=== PATIENT | male | born 1955 | race Caucasian/White ===

== ENCOUNTER 2017-07-16 09:51 | Outpatient (CLI) | payer MEDICAID ==
[~2017-07-16 09:51] MED LIST: CLOP75TA15 PO; MAGN100T6 PO; MULT1TAB74 PO; OMEG500C3 PO; VITC500T PO
== END 2017-07-16 23:59 | disposition home or self-care (01) ==
LOC: VAS 09:51
PROVIDERS: ATTEND Surgery
DX: I77.9 Disorder of arteries and arterioles, unspecified (principal)
CPT/HCPCS: 93922

== ENCOUNTER 2017-09-25 12:27 | Outpatient (CLI) | payer MEDICAID | END 2017-09-25 23:59 | disposition home or self-care (01) | LOC: VAS 12:27 | PROVIDERS: ATTEND Surgery | DX: I70.213 Atherosclerosis of native arteries of extremities with intermittent claudication, bilateral legs (principal) | CPT/HCPCS: 93922 ==

== ENCOUNTER 2021-03-25 16:31 | Inpatient (IN) | payer MEDICARE, MEDICAID ==
[~2021-03-25] VITALS: Ht 172.7 cm; Wt 83.0 kg
[~2021-03-25 16:31] MED LIST changes: +MULT-620 PO; -MULT1TAB74 PO
[2021-03-25 19:25] LABS: D-DIMER 3.24 MG/L FEU (0-0.50)
[2021-03-25] MEDS ORDERED: heparin 10,000 units/1 ML INJ IV PRN (22:55)
[2021-03-25] MEDS ORDERED: heparin 10,000 units/1 ML INJ IV ONE ×2 (22:55→23:10)
[2021-03-25] MEDS ORDERED: iohexol 350MG/ML 100ml bottle IV ONE (23:31)
[2021-03-26] MEDS ORDERED: HYDROmorphone inj. 0.5 MG/0.5 ML DISP.SYRIN IV PRN (00:45)
[2021-03-26] MEDS ORDERED: acetaminophen 650mg rectal suppository RC PRN (00:45)
[2021-03-26] MEDS ORDERED: bisacodyl 10mg suppository rectal RC PRN (00:45)
[2021-03-26] MEDS ORDERED: normal saline 1000ml 1,000 ML IV SCH (00:45)
[2021-03-26] MEDS ORDERED: acetaminophen 325mg tablet PO PRN ×2 (00:45)
[2021-03-26] MEDS ORDERED: ondansetron/PF 4mg/2ml inj IV PRN (00:45)
[2021-03-26] MEDS ORDERED: diphenhydrAMINE 50 mg/ml inj IV PRN (00:45)
[2021-03-26] MEDS ORDERED: morphine 2 MG/ML inj. syringe IV PRN ×2 (00:45)
[2021-03-26] MEDS ORDERED: HYDROcodone/acetaminophen 10/325mg tab PO PRN (00:45)
[2021-03-26] MEDS ORDERED: magnesium hydroxide 30ml (MOM) UD suspension PO PRN (00:45)
[2021-03-26] MEDS ORDERED: mag hydrox/Alum hydrox/simeth 30ml oral suspension PO PRN (00:45)
[2021-03-26] MEDS ORDERED: ondansetron 4mg rapidly disintigrating tab PO PRN (00:45)
[2021-03-26] MEDS ORDERED: diphenhydrAMINE 25mg capsule PO PRN (00:45)
[2021-03-26 00:54] LABS: BASOPHILS # (AUTO) 0.1 X10'3 (0-0.2); BASOPHILS % (AUTO) 0.7 % (0-1); EOSINOPHILS # (AUTO) 0.1 X10'3 (0-0.9); EOSINOPHILS % (AUTO) 1.1 % (0-6); HEMATOCRIT 43.8 % (42.0-52.0); HEMOGLOBIN 14.8 g/dl (14.0-17.9); LYMPHOCYTES # (AUTO) 2.6 X10'3 (1.1-4.8); LYMPHOCYTES % (AUTO) 30.7 % (21-51); MEAN CORPUSCULAR HEMOGLOBIN 30.3 PG (27.0-31.0); MEAN CORPUSCULAR HGB CONC 33.9 g/dL (33.0-36.5); MEAN CORPUSCULAR VOLUME 89.6 FL (78-98); MEAN PLATELET VOLUME 8.7 FL (7.4-10.4); MONOCYTES # (AUTO) 0.5 X10'3 (0-0.9); MONOCYTES % (AUTO) 5.9 % (2-12); NEUTROPHILS # (AUTO) 5.2 X10'3 (1.8-7.7); NEUTROPHILS % (AUTO) 61.6 % (42-75); PLATELET COUNT 209 X10'3 (140-440); RED BLOOD COUNT 4.89 X10'6 (4.70-6.10); RED CELL DISTRIBUTION WIDTH 14.1 % (11.5-14.5); WHITE BLOOD COUNT 8.4 X10'3 (4.5-11.0)
[2021-03-26 01:08] LABS: ALANINE AMINOTRANSFERASE 23 U/L (12-78); ALBUMIN 3.8 G/DL (3.4-5.0); ALBUMIN/GLOBULIN RATIO 0.9 (1.1-1.5); ALKALINE PHOSPHATASE 76 IU/L (46-116); ANION GAP 11 (8-16); BILIRUBIN,TOTAL 0.4 MG/DL (0.1-1.0); BLOOD UREA NITROGEN 11 MG/DL (7-18); BUN/CREATININE RATIO 11.5 (5.4-32.0); CALCIUM 8.9 MG/DL (8.5-10.1); CHLORIDE 105 MMOL/L (99-107); CREATININE 0.96 MG/DL (0.60-1.10); GLUCOSE 100 MG/DL (70-104); HEMOGLOBIN A1C 5.7 % (4.5-6.2); SODIUM 141 MMOL/L (135-145); TOTAL CARBON DIOXIDE 24.6 MMOL/L (24-32); eGFR 79 ML/MIN
[2021-03-26 01:16] LABS: LIPASE 130 U/L (73-393); MAGNESIUM 2.2 MG/DL (1.5-2.4)
[2021-03-26 01:18] LABS: ASPARTATE AMINO TRANSFERASE 23 U/L (10-37); PHOSPHORUS 2.7 MG/DL (2.3-4.5); POTASSIUM 3.5 MMOL/L (3.5-5.1)
[2021-03-26] MEDS: heparin 25,000 UNIT/250ml bag 250 ML IV SCH ×2 (01:44→18:01)
[2021-03-26 04:22] LABS: BASOPHILS # (AUTO) 0.1 X10'3 (0-0.2); BASOPHILS % (AUTO) 0.8 % (0-1); EOSINOPHILS # (AUTO) 0.1 X10'3 (0-0.9); EOSINOPHILS % (AUTO) 1.6 % (0-6); HEMATOCRIT 40.4 % (42.0-52.0); HEMOGLOBIN 13.8 g/dl (14.0-17.9); LYMPHOCYTES # (AUTO) 2.6 X10'3 (1.1-4.8); LYMPHOCYTES % (AUTO) 31.9 % (21-51); MEAN CORPUSCULAR HEMOGLOBIN 30.3 PG (27.0-31.0); MEAN CORPUSCULAR HGB CONC 34.1 g/dL (33.0-36.5); MEAN CORPUSCULAR VOLUME 88.7 FL (78-98); MEAN PLATELET VOLUME 8.6 FL (7.4-10.4); MONOCYTES # (AUTO) 0.6 X10'3 (0-0.9); MONOCYTES % (AUTO) 7.4 % (2-12); NEUTROPHILS # (AUTO) 4.7 X10'3 (1.8-7.7); NEUTROPHILS % (AUTO) 58.3 % (42-75); PLATELET COUNT 191 X10'3 (140-440); RED BLOOD COUNT 4.55 X10'6 (4.70-6.10); WHITE BLOOD COUNT 8.1 X10'3 (4.5-11.0)
[2021-03-26] MEDS: pantoprazole 40mg Tablet.DR PO SCH (07:30)
[2021-03-26] MEDS: docusate sod 100mg capsule PO SCH ×2 (08:00→20:05)
[2021-03-26] MEDS: losartan 25mg tablet PO SCH (08:00)
--- NOTE | 2021-03-26 09:46 | NUR ---
Pt refused all medications, states that he is only on multivitamins. Patient is no longer on any of blood thinner medications.
--- NOTE | 2021-03-26 09:47 | NUR ---
Pt's PTT is 117. Will hold heparin for now and contact hospitalist.
--- NOTE | 2021-03-26 15:35 | NUR ---
Patient in room ED 7. I have received report from Julee MARCELO and had the opportunity to ask questions and assume patient care.
[2021-03-26 16:36] VITALS: BP 149/68
--- NOTE | 2021-03-26 17:10 | NUR ---
Dr. Li PAGER ID: [phone] MESSAGE: [facility] [id number] Saturnino Shepard, patient is NPO and would like to eat if able. He is the new admit on heparin gtt with Right lower leg occlusion. Please advise. Zeinab MARCELO [phone]
[2021-03-26 18:00] VITALS: BP 116/72
--- NOTE | 2021-03-26 18:21 | NUR ---
Problems reprioritized. Patient report given, questions answered & plan of care reviewed with Ayde MARCELO.
[2021-03-26 22:00] VITALS: BP 125/70
[2021-03-27] VITALS (11 sets, daily range): BP systolic 103–138; BP diastolic 65–97
[2021-03-27 06:20] LABS: BASOPHILS % (AUTO) 0.6 % (0-1); EOSINOPHILS # (AUTO) 0.1 X10'3 (0-0.9); EOSINOPHILS % (AUTO) 1.5 % (0-6); HEMATOCRIT 40.4 % (42.0-52.0); HEMOGLOBIN 13.8 g/dl (14.0-17.9); LYMPHOCYTES # (AUTO) 2.3 X10'3 (1.1-4.8); MEAN CORPUSCULAR HEMOGLOBIN 30.6 PG (27.0-31.0); MEAN CORPUSCULAR HGB CONC 34.3 g/dL (33.0-36.5); MEAN CORPUSCULAR VOLUME 89.2 FL (78-98); MEAN PLATELET VOLUME 9.1 FL (7.4-10.4); MONOCYTES # (AUTO) 0.6 X10'3 (0-0.9); MONOCYTES % (AUTO) 9.2 % (2-12); NEUTROPHILS # (AUTO) 3.5 X10'3 (1.8-7.7); NEUTROPHILS % (AUTO) 53.7 % (42-75); PLATELET COUNT 186 X10'3 (140-440); RED BLOOD COUNT 4.53 X10'6 (4.70-6.10); RED CELL DISTRIBUTION WIDTH 14.7 % (11.5-14.5); WHITE BLOOD COUNT 6.6 X10'3 (4.5-11.0)
[2021-03-27 06:32] LABS: ALANINE AMINOTRANSFERASE 20 U/L (12-78); ALBUMIN 3.3 G/DL (3.4-5.0); ALBUMIN/GLOBULIN RATIO 0.9 (1.1-1.5); ALKALINE PHOSPHATASE 70 IU/L (46-116); ANION GAP 9 (8-16); ASPARTATE AMINO TRANSFERASE 19 U/L (10-37); BILIRUBIN,TOTAL 0.4 MG/DL (0.1-1.0); BLOOD UREA NITROGEN 14 MG/DL (7-18); BUN/CREATININE RATIO 14.9 (5.4-32.0); CALCIUM 8.6 MG/DL (8.5-10.1); CHLORIDE 108 MMOL/L (99-107); CHOLESTEROL 293 MG/DL (0-200); CREATININE 0.94 MG/DL (0.60-1.10); GLUCOSE 95 MG/DL (70-104); HDL CHOLESTEROL 42 MG/DL (35-60); LDL CHOLESTEROL 181 MG/DL (50-100); POTASSIUM 3.9 MMOL/L (3.5-5.1); SODIUM 144 MMOL/L (135-145); TOTAL CARBON DIOXIDE 26.9 MMOL/L (24-32); TOTAL PROTEIN 6.9 G/DL (6.4-8.2); TRIGLYCERIDES 174 MG/DL (20-135); eGFR 81 ML/MIN
[2021-03-27] MEDS: losartan 25mg tablet PO SCH (08:00)
[2021-03-27] MEDS: docusate sod 100mg capsule PO SCH ×2 (09:48→20:00)
[2021-03-27] MEDS: pantoprazole 40mg Tablet.DR PO SCH (09:49)
[2021-03-27] MEDS: heparin 25,000 UNIT/250ml bag 250 ML IV SCH (13:18)
[2021-03-27] MEDS ORDERED: LIDOcaine 1%/PF 5ML 10 MG/ML VIAL ONE (14:57)
[2021-03-27] MEDS ORDERED: fentaNYL/PF 50MCG/1 ML 2ML syringe ONE (14:58)
[2021-03-27] MEDS ORDERED: iohexol 300mg/ml 100ml inj. ONE (14:58)
[2021-03-27] MEDS ORDERED: midazolam 1 mg/ML 2ml injection ONE (14:58)
[2021-03-27] MEDS ORDERED: heparin 1,000 UNITS/NS 500ml 500 ML ONE (14:58)
--- NOTE | 2021-03-27 19:00 | NUR ---
Problems reprioritized. Patient report given, questions answered & plan of care reviewed with Pat RN.
[2021-03-27] MEDS: normal saline 1000ml 1,000 ML IV SCH (21:37)
[2021-03-28] VITALS (13 sets, daily range): BP systolic 69–120; BP diastolic 34–82
[2021-03-28 03:58] LABS: BASOPHILS % (AUTO) 0.5 % (0-1); EOSINOPHILS # (AUTO) 0.1 X10'3 (0-0.9); EOSINOPHILS % (AUTO) 0.7 % (0-6); HEMATOCRIT 40.3 % (42.0-52.0); HEMOGLOBIN 13.6 g/dl (14.0-17.9); LYMPHOCYTES # (AUTO) 2.2 X10'3 (1.1-4.8); LYMPHOCYTES % (AUTO) 26.4 % (21-51); MEAN CORPUSCULAR HEMOGLOBIN 30.4 PG (27.0-31.0); MEAN CORPUSCULAR HGB CONC 33.8 g/dL (33.0-36.5); MEAN PLATELET VOLUME 8.5 FL (7.4-10.4); MONOCYTES # (AUTO) 0.6 X10'3 (0-0.9); MONOCYTES % (AUTO) 7.8 % (2-12); NEUTROPHILS # (AUTO) 5.3 X10'3 (1.8-7.7); NEUTROPHILS % (AUTO) 64.6 % (42-75); PLATELET COUNT 191 X10'3 (140-440); RED BLOOD COUNT 4.48 X10'6 (4.70-6.10); RED CELL DISTRIBUTION WIDTH 14.4 % (11.5-14.5); WHITE BLOOD COUNT 8.1 X10'3 (4.5-11.0)
[2021-03-28 04:23] LABS: ANION GAP 9 (8-16); BLOOD UREA NITROGEN 18 MG/DL (7-18); CHLORIDE 107 MMOL/L (99-107); CREATININE 1.04 MG/DL (0.60-1.10); GLUCOSE 94 MG/DL (70-104); SODIUM 143 MMOL/L (135-145); TOTAL CARBON DIOXIDE 26.9 MMOL/L (24-32)
[2021-03-28 04:24] LABS: ALANINE AMINOTRANSFERASE 21 U/L (12-78); ALBUMIN 3.1 G/DL (3.4-5.0); ALBUMIN/GLOBULIN RATIO 0.8 (1.1-1.5); ALKALINE PHOSPHATASE 68 IU/L (46-116); ASPARTATE AMINO TRANSFERASE 19 U/L (10-37); BILIRUBIN,TOTAL 0.6 MG/DL (0.1-1.0); BUN/CREATININE RATIO 17.3 (5.4-32.0); CALCIUM 7.9 MG/DL (8.5-10.1); TOTAL PROTEIN 7.1 G/DL (6.4-8.2); eGFR 72 ML/MIN
--- NOTE | 2021-03-28 07:01 | NUR ---
Patient in room PCU 3027. I have received report from FOZIA ZULETA, and had the opportunity to ask questions and assume patient care.
[2021-03-28] MEDS: heparin 25,000 UNIT/250ml bag 250 ML IV SCH (08:42)
[2021-03-28] MEDS: normal saline 1000ml 1,000 ML IV SCH ×2 (08:44→19:25)
[2021-03-28] MEDS: losartan 25mg tablet PO SCH ×2 (08:44→08:47)
[2021-03-28] MEDS: docusate sod 100mg capsule PO SCH ×2 (08:44→19:26)
[2021-03-28] MEDS: pantoprazole 40mg Tablet.DR PO SCH ×2 (08:44→08:52)
[2021-03-28] MEDS: NORMAL SALINE IV SCH ×2 (10:45→22:07)
[2021-03-28 11:03] LABS: BASOPHILS # (AUTO) 0.1 X10'3 (0-0.2); BASOPHILS % (AUTO) 0.5 % (0-1); EOSINOPHILS # (AUTO) 0.1 X10'3 (0-0.9); EOSINOPHILS % (AUTO) 0.4 % (0-6); HEMATOCRIT 29.3 % (42.0-52.0); HEMOGLOBIN 9.7 g/dl (14.0-17.9); LYMPHOCYTES # (AUTO) 2.9 X10'3 (1.1-4.8); LYMPHOCYTES % (AUTO) 17.2 % (21-51); MEAN CORPUSCULAR HEMOGLOBIN 29.9 PG (27.0-31.0); MEAN CORPUSCULAR VOLUME 90.5 FL (78-98); MEAN PLATELET VOLUME 8.9 FL (7.4-10.4); MONOCYTES # (AUTO) 1.2 X10'3 (0-0.9); MONOCYTES % (AUTO) 7.3 % (2-12); NEUTROPHILS # (AUTO) 12.7 X10'3 (1.8-7.7); NEUTROPHILS % (AUTO) 74.6 % (42-75); PLATELET COUNT 194 X10'3 (140-440); RED BLOOD COUNT 3.24 X10'6 (4.70-6.10); RED CELL DISTRIBUTION WIDTH 14.4 % (11.5-14.5)
[2021-03-28] MEDS ORDERED: iohexol 350MG/ML 100ml bottle IV ONE (11:27)
--- NOTE | 2021-03-28 12:00 | NUR ---
PT STARTED THE DAY WELL, AMBULATING IN THE JARA, NO C/O PAIN, ASKING ABOUT DISCHARGE. AT THE TIME OF THE PHYSICAL ASSESSMENT, VSS, GOOD LUNG SOUNDS, REGULAR HEART RATE, NO C/O PAIN, PALPABLE PEDAL PULSES. AT 0940, PT C/O NUMBNESS IN HIS R LEG, FROM HIS KNEE DOWN. PT WAS PALE AND DIAPHORETIC, LOW BP. PT SUDDEN STIFFENED, ROLLED HIS EYES AND REPORTED A MOMENT OF SYNCOPE. CODE WAS CALLED. Addendum: 03/28/21 at 1550 by Steph Olivares RN BLADDER SCAN 83ML. Addendum: 03/28/21 at 1550 by Steph Olivares RN HEPARIN GTT TURNED OFF AT [address] CELIS
[2021-03-28] MEDS ORDERED: midazolam 1 mg/ML 2ml injection ONE (12:11)
[2021-03-28] MEDS ORDERED: heparin 10,000 units/1 ML INJ ONE ×2 (12:12→12:29)
[2021-03-28] MEDS ORDERED: fentaNYL /PF 50mcg/ml 5ml ampule ONE (12:58)
[2021-03-28] MEDS ORDERED: albumin (Human) 5% 250ml 250 ML IV ONE ×3 (12:58→22:45)
[2021-03-28] MEDS ORDERED: ceFAZolin 1000mg inj ONE ×2 (12:58→12:59)
[2021-03-28] MEDS ORDERED: LIDOcaine 2% (20mg/ml) 5ml vial ONE (12:59)
[2021-03-28] MEDS ORDERED: ePHEDrine 50MG/ML INJ. ONE (12:59)
[2021-03-28] MEDS ORDERED: 0.9 % SODIUM CHLORIDE 10 ML VIAL ONE (12:59)
[2021-03-28] MEDS ORDERED: rocuronium 10mg/ml inj IV ONE ×2 (12:59→14:20)
[2021-03-28 13:09] LABS: ABG BASE EXCESS -9.6 mmol/L (-2.0-2.0); ABG HCO3 16.4 mmol/L (22.0-26.0); ABG PCO2 (T) 34.9 mmHg (35.0-48.0); ABG PO2 (T) 265.6 mmHg (75.0-100.0); FCOHb 0.3 % (0.0-3.9); FMetHb 0.6 % (0.0-1.5); FO2Hb 98.1 % (94-97); TOTAL HEMOGLOBIN 8.4 G/dl (14.0-18.0)
[2021-03-28] MEDS ORDERED: sodium bicarbonate (8.4%) inj. 1 MEQ/ML ML ONE ×2 (13:13)
[2021-03-28 13:27] LABS: OCCULT BLOOD STOOL NEGATIVE (Neg)
[2021-03-28 13:49] LABS: BASOPHILS % (AUTO) 0.2 % (0-1); EOSINOPHILS % (AUTO) 0.1 % (0-6); HEMATOCRIT 26.5 % (42.0-52.0); HEMOGLOBIN 8.8 g/dl (14.0-17.9); LYMPHOCYTES # (AUTO) 0.9 X10'3 (1.1-4.8); LYMPHOCYTES % (AUTO) 7.4 % (21-51); MEAN CORPUSCULAR HEMOGLOBIN 29.8 PG (27.0-31.0); MEAN CORPUSCULAR HGB CONC 33.1 g/dL (33.0-36.5); MEAN CORPUSCULAR VOLUME 90.1 FL (78-98); MEAN PLATELET VOLUME 8.7 FL (7.4-10.4); MONOCYTES # (AUTO) 0.7 X10'3 (0-0.9); MONOCYTES % (AUTO) 5.5 % (2-12); NEUTROPHILS % (AUTO) 86.8 % (42-75); PLATELET COUNT 117 X10'3 (140-440); RED BLOOD COUNT 2.94 X10'6 (4.70-6.10); RED CELL DISTRIBUTION WIDTH 14.1 % (11.5-14.5); WHITE BLOOD COUNT 12.6 X10'3 (4.5-11.0)
[2021-03-28] MEDS ORDERED: midazolam 1 mg/ML 2ml injection IV ONE (13:55)
[2021-03-28] MEDS ORDERED: fentaNYL/PF 50MCG/1 ML 2ML syringe IV PRN (13:55)
[2021-03-28 13:59] LABS: ALBUMIN 2.3 G/DL (3.4-5.0); ANION GAP 13 (8-16); BLOOD UREA NITROGEN 17 MG/DL (7-18); BUN/CREATININE RATIO 17.3 (5.4-32.0); CALCIUM 6.5 MG/DL (8.5-10.1); CHLORIDE 112 MMOL/L (99-107); CREATINE KINASE 56 U/L (39-308); CREATININE 0.98 MG/DL (0.60-1.10); GLUCOSE 187 MG/DL (70-104); POTASSIUM 3.2 MMOL/L (3.5-5.1); SODIUM 142 MMOL/L (135-145); TOTAL CARBON DIOXIDE 17.4 MMOL/L (24-32); TROPONIN I < 0.04 NG/ML (0.0-0.05); eGFR 77 ML/MIN
[2021-03-28] MEDS ORDERED: morphine 10mg/ml inj. ONE (14:20)
[2021-03-28] MEDS ORDERED: heparin 1,000unit/ml 10ml vial 10 ML ONE (14:21)
[2021-03-28] MEDS ORDERED: NORepinephrine 1 mg/ml inj IV ONE (14:39)
[2021-03-28] MEDS ORDERED: bacitracin 15gm ointment TP ONE (14:43)
[2021-03-28 14:50] LABS: PARTIAL THROMBOPLASTIN TIME 28 SECONDS (22-32)
[2021-03-28] MEDS: midazolam 100mg in NS 100ml 100 ML IV PRN (15:30)
[2021-03-28] MEDS: FENTANYL-0.9 % NACL/PF 100 ML IV PRN (15:30)
[2021-03-28 16:01] LABS: ABG BASE EXCESS -6.1 mmol/L (-2.0-2.0); ABG HCO3 19.4 mmol/L (22.0-26.0); ABG OXYGEN SATURATION 98.3 % (94-97); ABG PO2 (T) 128.5 mmHg (75.0-100.0); FCOHb 0.3 % (0.0-3.9); FMetHb 0.4 % (0.0-1.5); FO2Hb 97.6 % (94-97); PEEP 6 cm H2O; RESPIRATORY RATE 22 b/min; TIDAL VOLUME 450 mL; TOTAL HEMOGLOBIN 12.4 G/dl (14.0-18.0)
[2021-03-28 16:08] LABS: BASOPHILS % (AUTO) 0.1 % (0-1); EOSINOPHILS % (AUTO) 0 % (0-6); HEMATOCRIT 34.5 % (42.0-52.0); HEMOGLOBIN 11.6 g/dl (14.0-17.9); LYMPHOCYTES # (AUTO) 1.1 X10'3 (1.1-4.8); LYMPHOCYTES % (AUTO) 7.3 % (21-51); MEAN CORPUSCULAR HEMOGLOBIN 30.2 PG (27.0-31.0); MEAN CORPUSCULAR HGB CONC 33.6 g/dL (33.0-36.5); MEAN PLATELET VOLUME 8.7 FL (7.4-10.4); MONOCYTES # (AUTO) 0.8 X10'3 (0-0.9); NEUTROPHILS # (AUTO) 13.3 X10'3 (1.8-7.7); NEUTROPHILS % (AUTO) 87.6 % (42-75); PLATELET COUNT 131 X10'3 (140-440); RED BLOOD COUNT 3.84 X10'6 (4.70-6.10); RED CELL DISTRIBUTION WIDTH 14.3 % (11.5-14.5); WHITE BLOOD COUNT 15.2 X10'3 (4.5-11.0)
[2021-03-28 16:17] LABS: PARTIAL THROMBOPLASTIN TIME 57 SECONDS (22-32)
--- NOTE | 2021-03-28 18:30 | NUR ---
Patient in room ICU 2040. I have received report from Rodri MARCELO and had the opportunity to ask questions and assume patient care.
[2021-03-28 19:54] LABS: D-DIMER 1.47 MG/L FEU (0-0.50); PARTIAL THROMBOPLASTIN TIME 26 SECONDS (22-32)
[2021-03-28 20:06] LABS: PLATELET COUNT 148 X10'3 (140-440)
[2021-03-28] MEDS ORDERED: magnesium 2GM in 50ml NS 50 ML IV ONE (20:15)
[2021-03-28] MEDS ORDERED: potassium Cl 20 mEq/100mL bag IV ONE (20:15)
[2021-03-28] MEDS ORDERED: calcium chloride inj. 1,000 MG in normal saline 100ml IV soln 100 ML IV ONE (20:15)
[2021-03-28] MEDS ORDERED: calcium chloride inj. 1,000 MG in normal saline 100ml IV soln 90 ML IV ONE (20:20)
[2021-03-28] MEDS ORDERED: potassium Cl 20mEq/100mL bag 100 ML IV ONE (20:20)
[2021-03-28] MEDS: potassium Cl 20mEq/100mL bag 100 ML IV SCH ×2 (20:38→22:38)
[2021-03-28 21:45] LABS: HEMATOCRIT 30.2 % (42.0-52.0); HEMOGLOBIN 10.3 g/dl (14.0-17.9); MEAN CORPUSCULAR HEMOGLOBIN 30.3 PG (27.0-31.0); MEAN CORPUSCULAR VOLUME 89.2 FL (78-98); MEAN PLATELET VOLUME 8.8 FL (7.4-10.4); PLATELET COUNT 134 X10'3 (140-440); RED BLOOD COUNT 3.39 X10'6 (4.70-6.10); RED CELL DISTRIBUTION WIDTH 14.3 % (11.5-14.5); WHITE BLOOD COUNT 13.3 X10'3 (4.5-11.0)
[2021-03-28] MEDS: dexmedetomidin/NS 400mcg/100ml 100 ML IV SCH (22:45)
[2021-03-29] VITALS (29 sets, daily range): BP systolic 87–113; BP diastolic 53–62
[2021-03-29] MEDS: FENTANYL-0.9 % NACL/PF 100 ML IV PRN ×6 (01:09→23:14)
[2021-03-29 02:50] LABS: ABG BASE EXCESS -5.3 mmol/L (-2.0-2.0); ABG HCO3 19.4 mmol/L (22.0-26.0); ABG OXYGEN SATURATION 97.2 % (94-97); ABG PCO2 (T) 34.8 mmHg (35.0-48.0); ABG PO2 (T) 100.6 mmHg (75.0-100.0); FMetHb 0.4 % (0.0-1.5); FO2Hb 96.8 % (94-97); PATIENT TEMPERATURE 37.2; PEEP 6 cm H2O; RESPIRATORY RATE 22 b/min; TIDAL VOLUME 450 mL; TOTAL HEMOGLOBIN 8.2 G/dl (14.0-18.0)
[2021-03-29 03:25] LABS: BASOPHILS % (AUTO) 0 % (0-1); EOSINOPHILS % (AUTO) 0 % (0-6); HEMATOCRIT 22.4 % (42.0-52.0); HEMOGLOBIN 7.5 g/dl (14.0-17.9); LYMPHOCYTES # (AUTO) 1.6 X10'3 (1.1-4.8); LYMPHOCYTES % (AUTO) 14.2 % (21-51); MEAN CORPUSCULAR HEMOGLOBIN 30.4 PG (27.0-31.0); MEAN CORPUSCULAR HGB CONC 33.7 g/dL (33.0-36.5); MEAN CORPUSCULAR VOLUME 90.2 FL (78-98); MEAN PLATELET VOLUME 8.7 FL (7.4-10.4); MONOCYTES # (AUTO) 1.4 X10'3 (0-0.9); MONOCYTES % (AUTO) 12.1 % (2-12); NEUTROPHILS # (AUTO) 8.3 X10'3 (1.8-7.7); NEUTROPHILS % (AUTO) 73.7 % (42-75); PLATELET COUNT 109 X10'3 (140-440); RED BLOOD COUNT 2.48 X10'6 (4.70-6.10); RED CELL DISTRIBUTION WIDTH 14.1 % (11.5-14.5); WHITE BLOOD COUNT 11.3 X10'3 (4.5-11.0)
[2021-03-29 03:41] LABS: ALANINE AMINOTRANSFERASE 15 U/L (12-78); ALBUMIN 2.7 G/DL (3.4-5.0); ALBUMIN/GLOBULIN RATIO 1.2 (1.1-1.5); ALKALINE PHOSPHATASE 32 IU/L (46-116); ANION GAP 9 (8-16); ASPARTATE AMINO TRANSFERASE 13 U/L (10-37); BILIRUBIN,TOTAL 0.6 MG/DL (0.1-1.0); BLOOD UREA NITROGEN 16 MG/DL (7-18); BUN/CREATININE RATIO 13.3 (5.4-32.0); CALCIUM 6.9 MG/DL (8.5-10.1); CHLORIDE 114 MMOL/L (99-107); GLUCOSE 141 MG/DL (70-104); MAGNESIUM 1.9 MG/DL (1.5-2.4); PHOSPHORUS 2.9 MG/DL (2.3-4.5); POTASSIUM 5.1 MMOL/L (3.5-5.1); SODIUM 142 MMOL/L (135-145); TOTAL CARBON DIOXIDE 19.5 MMOL/L (24-32); eGFR 61 ML/MIN
--- NOTE | 2021-03-29 04:30 | NUR ---
Morning rounds with ICU Tele-Med MD, aware of drop in H&H, received order for a STAT hemogram and to notify if HGB less than 7.5.
[2021-03-29 04:33] LABS: HEMOGLOBIN 7.2 g/dl (14.0-17.9); MEAN CORPUSCULAR HEMOGLOBIN 30.6 PG (27.0-31.0); MEAN CORPUSCULAR HGB CONC 33.8 g/dL (33.0-36.5); MEAN CORPUSCULAR VOLUME 90.5 FL (78-98); MEAN PLATELET VOLUME 9.2 FL (7.4-10.4); PLATELET COUNT 116 X10'3 (140-440); RED BLOOD COUNT 2.36 X10'6 (4.70-6.10); RED CELL DISTRIBUTION WIDTH 14.4 % (11.5-14.5); WHITE BLOOD COUNT 11.5 X10'3 (4.5-11.0)
[2021-03-29 04:39] LABS: HEMATOCRIT 21.4 % (42.0-52.0)
[2021-03-29 04:51] LABS: PARTIAL THROMBOPLASTIN TIME 30 SECONDS (22-32)
--- NOTE | 2021-03-29 05:30 | NUR ---
Dr Forrester notified of PT's drop in H&H. Order received to transfuse 2 units PRBC's. Blood bank was called to make sure they would release blood under emergent d/t not having a consent signed. Lab will release and will transfuse when available.
[2021-03-29] MEDS ORDERED: NORepinephrine 8mg/ 250ml NS 250 ML IV ONE (05:43)
[2021-03-29] MEDS: midazolam 100mg in NS 100ml 100 ML IV PRN ×3 (05:51→23:36)
[2021-03-29] MEDS ORDERED: Potassium Cl inj 40 MEQ in sodium chloride 0.45% 500ml 500 ML IV ONE (06:15)
--- NOTE | 2021-03-29 06:32 | NUR ---
Problems reprioritized. Patient report given, questions answered & plan of care reviewed with Sujit MARCELO.
[2021-03-29] MEDS: docusate sod 100mg capsule PO SCH ×2 (06:47→20:00)
[2021-03-29] MEDS: pantoprazole 40 MG vial IV SCH (09:11)
[2021-03-29] MEDS: normal saline 1000ml 1,000 ML IV SCH ×3 (09:20→23:33)
--- NOTE | 2021-03-29 11:15 | NUR ---
2ND unit blood transfusion completed at 1115; unit #[id number] with stable vital signs
[2021-03-29] MEDS ORDERED: NORMAL SALINE IV SCH (11:45)
[2021-03-29] MEDS: dexmedetomidin/NS 400mcg/100ml 100 ML IV SCH (11:59)
--- NOTE | 2021-03-29 12:00 | NUR ---
Urine output remains low; orders from Dr. Shah for fluids
[2021-03-29] MEDS ORDERED: normal saline 1000ml IV bolus over 1 hour IV ONE (12:15)
[2021-03-29] MEDS: CALCIUM GLUC 1gm/50ml NACL,iso 50 ML IV SCH ×2 (12:26→14:43)
[2021-03-29] MEDS: NORepinephrine 8mg/ 250ml NS 250 ML IV PRN ×2 (12:27→21:11)
[2021-03-29 12:38] LABS: HEMATOCRIT 29.7 % (42.0-52.0); HEMOGLOBIN 10.1 g/dl (14.0-17.9); MEAN CORPUSCULAR HEMOGLOBIN 30.7 PG (27.0-31.0); MEAN CORPUSCULAR VOLUME 90.4 FL (78-98); MEAN PLATELET VOLUME 9.1 FL (7.4-10.4); PLATELET COUNT 103 X10'3 (140-440); RED BLOOD COUNT 3.29 X10'6 (4.70-6.10); RED CELL DISTRIBUTION WIDTH 14.7 % (11.5-14.5); WHITE BLOOD COUNT 11.2 X10'3 (4.5-11.0)
--- NOTE | 2021-03-29 12:40 | NUR ---
Luis Consult: Pt intubated s/p evacuation retroperitoneal hematoma, laparotomy, L femoral and iliac artery/vein exploration, R femoral popliteal bypass graft w/ thromboendarterectomy distal popliteal artery per EMR. Luis 12 w/ L groin puncture site otherwise intact per EMR. MAP 67-70 during rounds. NPO at this time pending return to OR tomorrow for washout per RN. LBM 03/27. TF recs below using estimated needs. Will monitor for nutrition support needs if prolonged intubation. Rec: 1. IF TF; Vital AF at 70ml/hr goal; to provide 1680ml volume/day, 2016 kcals, 1361ml water, and 126g protein. 2. IF TF; additional water flush 150ml Q4H 3. IF TF; PALB Q ; daily scaled wts 4. routine bowel care 5. upon extubation; advance diet as medically indicated to heart healthy Addendum: 03/29/21 at [address] Amended: Links added.
[2021-03-29] MEDS: mineral oil/petrolatum ophthal oint EACHEYE SCH ×2 (14:31→20:47)
[2021-03-29] MEDS: ceFAZolin/D5W- 1GM premix 50 ML IV SCH (15:51)
[2021-03-29 15:59] LABS: HEMATOCRIT 28.1 % (42.0-52.0); HEMOGLOBIN 9.7 g/dl (14.0-17.9); MEAN CORPUSCULAR HEMOGLOBIN 31.2 PG (27.0-31.0); MEAN CORPUSCULAR HGB CONC 34.6 g/dL (33.0-36.5); MEAN CORPUSCULAR VOLUME 90.2 FL (78-98); MEAN PLATELET VOLUME 9.6 FL (7.4-10.4); PLATELET COUNT 102 X10'3 (140-440); RED BLOOD COUNT 3.12 X10'6 (4.70-6.10); RED CELL DISTRIBUTION WIDTH 14.4 % (11.5-14.5)
--- NOTE | 2021-03-29 18:30 | NUR ---
Patient in room ICU 2040. I have received report from Sujit MARCELO and had the opportunity to ask questions and assume patient care.
--- NOTE | 2021-03-29 18:33 | NUR ---
Problems reprioritized. Patient report given, questions answered & plan of care reviewed with Roshan MARCELO.
[2021-03-29 20:40] LABS: HEMATOCRIT 25.6 % (42.0-52.0); HEMOGLOBIN 8.8 g/dl (14.0-17.9); MEAN CORPUSCULAR HEMOGLOBIN 30.6 PG (27.0-31.0); MEAN CORPUSCULAR HGB CONC 34.3 g/dL (33.0-36.5); MEAN CORPUSCULAR VOLUME 89.4 FL (78-98); MEAN PLATELET VOLUME 8.9 FL (7.4-10.4); PLATELET COUNT 99 X10'3 (140-440); RED BLOOD COUNT 2.86 X10'6 (4.70-6.10); RED CELL DISTRIBUTION WIDTH 14.2 % (11.5-14.5); WHITE BLOOD COUNT 9.6 X10'3 (4.5-11.0)
[2021-03-30] VITALS (26 sets, daily range): BP systolic 88–115; BP diastolic 49–60
[2021-03-30] MEDS: ceFAZolin/D5W- 1GM premix 50 ML IV SCH (00:03)
[2021-03-30 01:29] LABS: BASOPHILS # (AUTO) 0.1 X10'3 (0-0.2); BASOPHILS % (AUTO) 0.7 % (0-1); EOSINOPHILS % (AUTO) 0.1 % (0-6); HEMATOCRIT 24.5 % (42.0-52.0); HEMOGLOBIN 8.4 g/dl (14.0-17.9); LYMPHOCYTES # (AUTO) 1.3 X10'3 (1.1-4.8); MEAN CORPUSCULAR HEMOGLOBIN 30.4 PG (27.0-31.0); MEAN CORPUSCULAR HGB CONC 34.3 g/dL (33.0-36.5); MEAN CORPUSCULAR VOLUME 88.6 FL (78-98); MEAN PLATELET VOLUME 9.2 FL (7.4-10.4); MONOCYTES % (AUTO) 11.4 % (2-12); NEUTROPHILS # (AUTO) 6.5 X10'3 (1.8-7.7); NEUTROPHILS % (AUTO) 72.8 % (42-75); PLATELET COUNT 107 X10'3 (140-440); RED BLOOD COUNT 2.76 X10'6 (4.70-6.10); RED CELL DISTRIBUTION WIDTH 14.6 % (11.5-14.5); WHITE BLOOD COUNT 8.9 X10'3 (4.5-11.0)
[2021-03-30 01:34] LABS: ALANINE AMINOTRANSFERASE 17 U/L (12-78); ALBUMIN/GLOBULIN RATIO 0.8 (1.1-1.5); ALKALINE PHOSPHATASE 37 IU/L (46-116); ANION GAP 6 (8-16); ASPARTATE AMINO TRANSFERASE 32 U/L (10-37); BILIRUBIN,TOTAL 0.6 MG/DL (0.1-1.0); BLOOD UREA NITROGEN 20 MG/DL (7-18); BUN/CREATININE RATIO 16.9 (5.4-32.0); CALCIUM 6.7 MG/DL (8.5-10.1); CHLORIDE 118 MMOL/L (99-107); CREATININE 1.18 MG/DL (0.60-1.10); GLUCOSE 135 MG/DL (70-104); POTASSIUM 4.5 MMOL/L (3.5-5.1); SODIUM 146 MMOL/L (135-145); TOTAL CARBON DIOXIDE 21.8 MMOL/L (24-32); TOTAL PROTEIN 4.4 G/DL (6.4-8.2); eGFR 62 ML/MIN
[2021-03-30] MEDS: mineral oil/petrolatum ophthal oint EACHEYE SCH ×4 (02:11→20:30)
[2021-03-30 02:41] LABS: ABG BASE EXCESS -7.4 mmol/L (-2.0-2.0); ABG HCO3 16.9 mmol/L (22.0-26.0); ABG OXYGEN SATURATION 91.9 % (94-97); ABG PCO2 (T) 31.8 mmHg (35.0-48.0); ABG PO2 (T) 70.7 mmHg (75.0-100.0); FCOHb 0.3 % (0.0-3.9); FMetHb 0.5 % (0.0-1.5); FO2Hb 91.2 % (94-97); PATIENT TEMPERATURE 38.5; PEEP 6 cm H2O; RESPIRATORY RATE 22 b/min; TIDAL VOLUME 450 mL
[2021-03-30 05:07] LABS: BASOPHILS % (AUTO) 0.2 % (0-1); EOSINOPHILS % (AUTO) 0 % (0-6); HEMATOCRIT 24.2 % (42.0-52.0); HEMOGLOBIN 8.2 g/dl (14.0-17.9); LYMPHOCYTES # (AUTO) 1.2 X10'3 (1.1-4.8); LYMPHOCYTES % (AUTO) 16.7 % (21-51); MEAN CORPUSCULAR HEMOGLOBIN 30.3 PG (27.0-31.0); MEAN CORPUSCULAR HGB CONC 33.9 g/dL (33.0-36.5); MEAN CORPUSCULAR VOLUME 89.6 FL (78-98); MEAN PLATELET VOLUME 9.3 FL (7.4-10.4); MONOCYTES # (AUTO) 0.9 X10'3 (0-0.9); MONOCYTES % (AUTO) 12.5 % (2-12); NEUTROPHILS % (AUTO) 70.6 % (42-75); PLATELET COUNT 109 X10'3 (140-440); RED CELL DISTRIBUTION WIDTH 14.6 % (11.5-14.5); WHITE BLOOD COUNT 7.1 X10'3 (4.5-11.0)
--- NOTE | 2021-03-30 05:27 | NUR ---
DR Walker rounded, discussed patient temp 101.4. She ordered blood cultures X2, sputum cultures. Changed antibiotics to Zosyn. He ordered 2 units prbc to be on hand for pre op.
[2021-03-30] MEDS: normal saline 1000ml 1,000 ML IV SCH ×3 (06:50→20:30)
[2021-03-30] MEDS: losartan 25mg tablet PO SCH (06:58)
[2021-03-30] MEDS: docusate sod 100mg capsule PO SCH ×2 (06:58→20:30)
[2021-03-30] MEDS: pantoprazole 40 MG vial IV SCH (08:24)
[2021-03-30] MEDS: piperacillin/tazo 4.5gm/100ml 100 ML IV SCH ×2 (08:24→16:15)
[2021-03-30 08:25] LABS: HEMATOCRIT 22.7 % (42.0-52.0); HEMOGLOBIN 7.7 g/dl (14.0-17.9); MEAN CORPUSCULAR HEMOGLOBIN 30.6 PG (27.0-31.0); MEAN CORPUSCULAR HGB CONC 33.9 g/dL (33.0-36.5); MEAN PLATELET VOLUME 8.8 FL (7.4-10.4); PLATELET COUNT 109 X10'3 (140-440); RED BLOOD COUNT 2.52 X10'6 (4.70-6.10)
[2021-03-30] MEDS: FENTANYL-0.9 % NACL/PF 100 ML IV PRN ×4 (08:44→21:39)
--- NOTE | 2021-03-30 08:52 | NUR ---
Dr. Arana at bedside with plans to take patient back to OR this afternoon. MD aware of oozing and gradual drop in H/H.
[2021-03-30 12:21] LABS: HEMATOCRIT 22.8 % (42.0-52.0); HEMOGLOBIN 7.7 g/dl (14.0-17.9); MEAN CORPUSCULAR HEMOGLOBIN 30.7 PG (27.0-31.0); MEAN CORPUSCULAR VOLUME 90.2 FL (78-98); MEAN PLATELET VOLUME 8.7 FL (7.4-10.4); PLATELET COUNT 109 X10'3 (140-440); RED BLOOD COUNT 2.53 X10'6 (4.70-6.10); RED CELL DISTRIBUTION WIDTH 14.8 % (11.5-14.5); WHITE BLOOD COUNT 5.4 X10'3 (4.5-11.0)
[2021-03-30 12:27] LABS: PARTIAL THROMBOPLASTIN TIME 36 SECONDS (22-32)
[2021-03-30] MEDS: NORepinephrine 8mg/ 250ml NS 250 ML IV PRN (13:14)
[2021-03-30] MEDS ORDERED: sevoflurane 250ml liquid IH ONE (14:44)
--- NOTE | 2021-03-30 14:52 | NUR ---
Patient to OR
[2021-03-30] MEDS ORDERED: rocuronium 10mg/ml inj IV ONE (15:06)
--- NOTE | 2021-03-30 16:00 | NUR ---
Patient back to room and placed on bedside monitor; HR in the 130s and asynchronous with the ventilator; elevated BP. Okay per Dr. Arana and anesthesiologist to bolus patient with 25mcg Fentanyl and 2mg Versed until stable on ventilator.
[2021-03-30] MEDS: midazolam 100mg in NS 100ml 100 ML IV PRN (17:21)
--- NOTE | 2021-03-30 18:22 | NUR ---
Problems reprioritized. Patient report given, questions answered & plan of care reviewed with Roshan MARCELO.
[2021-03-31] VITALS (29 sets, daily range): BP systolic 89–138; BP diastolic 43–71
[2021-03-31] MEDS: piperacillin/tazo 4.5gm/100ml 100 ML IV SCH ×3 (00:06→16:22)
[2021-03-31] MEDS: FENTANYL-0.9 % NACL/PF 100 ML IV PRN ×3 (02:08→22:33)
[2021-03-31] MEDS: mineral oil/petrolatum ophthal oint EACHEYE SCH ×4 (02:24→20:04)
[2021-03-31] MEDS: normal saline 1000ml 1,000 ML IV SCH ×4 (02:24→22:34)
[2021-03-31 03:01] LABS: BASOPHILS % (AUTO) 0.1 % (0-1); EOSINOPHILS % (AUTO) 0.1 % (0-6); LYMPHOCYTES # (AUTO) 0.6 X10'3 (1.1-4.8); LYMPHOCYTES % (AUTO) 14.1 % (21-51); MEAN CORPUSCULAR HEMOGLOBIN 30.8 PG (27.0-31.0); MEAN CORPUSCULAR HGB CONC 33.9 g/dL (33.0-36.5); MEAN CORPUSCULAR VOLUME 90.9 FL (78-98); MEAN PLATELET VOLUME 8.8 FL (7.4-10.4); MONOCYTES # (AUTO) 0.4 X10'3 (0-0.9); NEUTROPHILS # (AUTO) 3.4 X10'3 (1.8-7.7); NEUTROPHILS % (AUTO) 76.7 % (42-75); PLATELET COUNT 105 X10'3 (140-440); RED BLOOD COUNT 2.18 X10'6 (4.70-6.10); RED CELL DISTRIBUTION WIDTH 15.2 % (11.5-14.5); WHITE BLOOD COUNT 4.5 X10'3 (4.5-11.0)
[2021-03-31 03:02] LABS: ABG BASE EXCESS -5.9 mmol/L (-2.0-2.0); ABG HCO3 18.7 mmol/L (22.0-26.0); ABG OXYGEN SATURATION 93.1 % (94-97); ABG PCO2 (T) 32.3 mmHg (35.0-48.0); ABG PO2 (T) 68.1 mmHg (75.0-100.0); FCOHb 0.3 % (0.0-3.9); FMetHb 0.3 % (0.0-1.5); FO2Hb 92.5 % (94-97); PATIENT TEMPERATURE 37.3; PEEP 6 cm H2O; RESPIRATORY RATE 22 b/min; TIDAL VOLUME 450 mL; TOTAL HEMOGLOBIN 5.9 G/dl (14.0-18.0)
[2021-03-31 03:09] LABS: HEMATOCRIT 19.8 % (42.0-52.0); HEMOGLOBIN 6.7 g/dl (14.0-17.9)
[2021-03-31 03:22] LABS: ALANINE AMINOTRANSFERASE 22 U/L (12-78); ALBUMIN 1.7 G/DL (3.4-5.0); ALBUMIN/GLOBULIN RATIO 0.6 (1.1-1.5); ALKALINE PHOSPHATASE 40 IU/L (46-116); ANION GAP 10 (8-16); ASPARTATE AMINO TRANSFERASE 39 U/L (10-37); BILIRUBIN,TOTAL 0.7 MG/DL (0.1-1.0); BLOOD UREA NITROGEN 16 MG/DL (7-18); BUN/CREATININE RATIO 14.8 (5.4-32.0); CALCIUM 6.5 MG/DL (8.5-10.1); CHLORIDE 115 MMOL/L (99-107); CREATININE 1.08 MG/DL (0.60-1.10); GLUCOSE 108 MG/DL (70-104); PHOSPHORUS 1.7 MG/DL (2.3-4.5); POTASSIUM 3.9 MMOL/L (3.5-5.1); SODIUM 145 MMOL/L (135-145); TOTAL CARBON DIOXIDE 20.5 MMOL/L (24-32); TOTAL PROTEIN 4.6 G/DL (6.4-8.2); eGFR 69 ML/MIN
[2021-03-31] MEDS ORDERED: CALCIUM GLUC 1gm/50ml NACL,iso 100 ML IV ONE (08:00)
[2021-03-31] MEDS: losartan 25mg tablet PO SCH (08:00)
[2021-03-31] MEDS: docusate sod 100mg capsule PO SCH ×2 (08:00→20:00)
[2021-03-31] MEDS: pantoprazole 40 MG vial IV SCH (09:44)
[2021-03-31 14:02] LABS: HEMATOCRIT 26.4 % (42.0-52.0); MEAN CORPUSCULAR HGB CONC 34.1 g/dL (33.0-36.5); MEAN CORPUSCULAR VOLUME 90.8 FL (78-98); MEAN PLATELET VOLUME 8.5 FL (7.4-10.4); PLATELET COUNT 113 X10'3 (140-440); RED BLOOD COUNT 2.91 X10'6 (4.70-6.10); RED CELL DISTRIBUTION WIDTH 15.2 % (11.5-14.5); WHITE BLOOD COUNT 6.5 X10'3 (4.5-11.0)
--- NOTE | 2021-03-31 18:25 | NUR ---
Patient in room ICU 2040. I have received report from Claire MARCELO and had the opportunity to ask questions and assume patient care.
[2021-04-01] VITALS (24 sets, daily range): BP systolic 94–129; BP diastolic 49–73
[2021-04-01] MEDS: piperacillin/tazo 4.5gm/100ml 100 ML IV SCH (00:53)
[2021-04-01] MEDS: mineral oil/petrolatum ophthal oint EACHEYE SCH ×4 (02:06→20:50)
[2021-04-01 03:22] LABS: BASOPHILS % (AUTO) 0.3 % (0-1); EOSINOPHILS % (AUTO) 0.1 % (0-6); HEMATOCRIT 25.9 % (42.0-52.0); LYMPHOCYTES # (AUTO) 0.8 X10'3 (1.1-4.8); LYMPHOCYTES % (AUTO) 10.7 % (21-51); MEAN CORPUSCULAR HEMOGLOBIN 31.4 PG (27.0-31.0); MEAN CORPUSCULAR HGB CONC 34.7 g/dL (33.0-36.5); MEAN CORPUSCULAR VOLUME 90.6 FL (78-98); MEAN PLATELET VOLUME 8.6 FL (7.4-10.4); MONOCYTES # (AUTO) 0.7 X10'3 (0-0.9); MONOCYTES % (AUTO) 9.5 % (2-12); NEUTROPHILS # (AUTO) 5.6 X10'3 (1.8-7.7); NEUTROPHILS % (AUTO) 79.4 % (42-75); PLATELET COUNT 128 X10'3 (140-440); RED BLOOD COUNT 2.86 X10'6 (4.70-6.10); RED CELL DISTRIBUTION WIDTH 15.9 % (11.5-14.5); WHITE BLOOD COUNT 7.1 X10'3 (4.5-11.0)
[2021-04-01 03:46] LABS: ALANINE AMINOTRANSFERASE 31 U/L (12-78); ALBUMIN 1.5 G/DL (3.4-5.0); ALBUMIN/GLOBULIN RATIO 0.4 (1.1-1.5); ALKALINE PHOSPHATASE 65 IU/L (46-116); ANION GAP 11 (8-16); ASPARTATE AMINO TRANSFERASE 81 U/L (10-37); BILIRUBIN,TOTAL 1.1 MG/DL (0.1-1.0); BLOOD UREA NITROGEN 19 MG/DL (7-18); BUN/CREATININE RATIO 20.4 (5.4-32.0); CHLORIDE 117 MMOL/L (99-107); CREATININE 0.93 MG/DL (0.60-1.10); GLUCOSE 100 MG/DL (70-104); MAGNESIUM 2.2 MG/DL (1.5-2.4); POTASSIUM 3.5 MMOL/L (3.5-5.1); SODIUM 148 MMOL/L (135-145); TOTAL CARBON DIOXIDE 19.9 MMOL/L (24-32); TOTAL PROTEIN 4.9 G/DL (6.4-8.2); eGFR 82 ML/MIN
[2021-04-01 03:51] LABS: PHOSPHORUS 1.2 MG/DL (2.3-4.5)
[2021-04-01 04:02] LABS: ABG BASE EXCESS -2.7 mmol/L (-2.0-2.0); ABG HCO3 20.8 mmol/L (22.0-26.0); ABG OXYGEN SATURATION 84.8 % (94-97); ABG PCO2 (T) 32.2 mmHg (35.0-48.0); ABG PO2 (T) 48.1 mmHg (75.0-100.0); FCOHb 0.3 % (0.0-3.9); FMetHb 0.1 % (0.0-1.5); FO2Hb 84.5 % (94-97); PATIENT TEMPERATURE 37.8; TOTAL HEMOGLOBIN 9.3 G/dl (14.0-18.0)
[2021-04-01] MEDS ORDERED: potassium phosphate inj 30 MMOL in normal saline 500ml IV soln 500 ML IV ONE (04:40)
[2021-04-01] MEDS: midazolam 100mg in NS 100ml 100 ML IV PRN (05:31)
--- NOTE | 2021-04-01 06:41 | NUR ---
Problems reprioritized. Patient report given, questions answered & plan of care reviewed with Rodri MARCELO.
[2021-04-01] MEDS: pantoprazole 40 MG vial IV SCH (08:31)
[2021-04-01] MEDS: CefTRIAXone 2gm/D5W 50ml BAG 50 ML IV SCH (08:31)
[2021-04-01] MEDS: losartan 25mg tablet PO SCH (08:32)
--- NOTE | 2021-04-01 11:27 | NUR ---
Reassessment: Pt remains intubated and sedated, went back to OR 03/30 for repeat exploratory laparotomy. Currently pending Surgeon consult for plans of feeding. [facility] 03/27. Will continue to monitor for nutrition support needs if prolonged intubation. Rec: 1. IF TF; Vital AF at 70ml/hr goal; to provide 1680ml volume/day, 2016 kcals, 1361ml water, and 126g protein. 2. IF TF; additional water flush 150ml Q4H 3. IF TF; PALB Q /; daily scaled wts 4. routine bowel care 5. upon extubation; advance diet as medically indicated to heart healthy Addendum: 04/01/21 at [address] Amended: Links added.
[2021-04-01] MEDS: docusate sodium 100mg/10ml UD cup PO SCH ×2 (11:38→20:49)
[2021-04-01 12:44] LABS: ISTAT CL 110 mmol/L (99-107); ISTAT K 4.1 mmol/L (3.5-5.1)
[2021-04-01 12:45] LABS: ISTAT ANION GAP 12 (8-12); ISTAT BUN 15 mg/dL (7-18); ISTAT CREATININE 0.8 mg/dL (0.8-1.3); ISTAT GLUCOSE 196 mg/dL (70-105); ISTAT HGB 8.8 g/dl (14.0-18.0); ISTAT Hct 26 %PCV (42-52); ISTAT IONIZED CALCIUM 1.05 mmol/L (1.03-1.32); ISTAT TOTAL CO2 18 mmol/L (24-32); ISTAT eGFR > 90 ML/MIN; POC BUN/CREATININE RATIO 18.8 (5.4-32.0)
[2021-04-01 12:46] LABS: ISTAT NA 140 mmol/L (135-145)
[2021-04-01 12:47] LABS: ISTAT K 3.2 mmol/L (3.5-5.1)
[2021-04-01 12:48] LABS: ISTAT ANION GAP 13 (8-12); ISTAT BUN 15 mg/dL (7-18); ISTAT CL 110 mmol/L (99-107); ISTAT CREATININE 0.8 mg/dL (0.8-1.3); ISTAT GLUCOSE 181 mg/dL (70-105); ISTAT HGB 8.5 g/dl (14.0-18.0); ISTAT Hct 25 %PCV (42-52); ISTAT IONIZED CALCIUM 0.99 mmol/L (1.03-1.32); ISTAT TOTAL CO2 17 mmol/L (24-32); ISTAT eGFR > 90 ML/MIN; POC BUN/CREATININE RATIO 18.8 (5.4-32.0)
[2021-04-01 12:49] LABS: ISTAT NA 140 mmol/L (135-145)
[2021-04-01 16:00] LABS: POTASSIUM 3.3 MMOL/L (3.5-5.1)
--- NOTE | 2021-04-01 18:33 | NUR ---
Patient in room ICU 2040. I have received report from Rodri MARCELO and had the opportunity to ask questions and assume patient care.
[2021-04-01] MEDS: Dextrose 10%-water IV solution 1,000 ML IV SCH (22:29)
[2021-04-02] VITALS (24 sets, daily range): BP systolic 84–137; BP diastolic 47–66
[2021-04-02] MEDS: mineral oil/petrolatum ophthal oint EACHEYE SCH ×4 (02:00→20:24)
[2021-04-02 03:28] LABS: ABG BASE EXCESS -4.3 mmol/L (-2.0-2.0); ABG PCO2 (T) 25.2 mmHg (35.0-48.0); ABG PO2 (T) 54.1 mmHg (75.0-100.0); FCOHb 0.3 % (0.0-3.9); FMetHb 0.3 % (0.0-1.5); FO2Hb 88.5 % (94-97); PATIENT TEMPERATURE 37.7; PEEP 6 cm H2O; TIDAL VOLUME 557 mL; TOTAL HEMOGLOBIN 9.6 G/dl (14.0-18.0)
[2021-04-02 03:37] LABS: BASOPHILS % (AUTO) 0.4 % (0-1); EOSINOPHILS % (AUTO) 0.2 % (0-6); HEMATOCRIT 26.4 % (42.0-52.0); HEMOGLOBIN 9.2 g/dl (14.0-17.9); LYMPHOCYTES # (AUTO) 1.5 X10'3 (1.1-4.8); LYMPHOCYTES % (AUTO) 13.9 % (21-51); MEAN CORPUSCULAR HEMOGLOBIN 31.4 PG (27.0-31.0); MEAN CORPUSCULAR HGB CONC 34.6 g/dL (33.0-36.5); MEAN CORPUSCULAR VOLUME 90.6 FL (78-98); MEAN PLATELET VOLUME 8.4 FL (7.4-10.4); MONOCYTES # (AUTO) 0.8 X10'3 (0-0.9); MONOCYTES % (AUTO) 7.5 % (2-12); NEUTROPHILS # (AUTO) 8.3 X10'3 (1.8-7.7); PLATELET COUNT 175 X10'3 (140-440); RED BLOOD COUNT 2.92 X10'6 (4.70-6.10); RED CELL DISTRIBUTION WIDTH 15.7 % (11.5-14.5); WHITE BLOOD COUNT 10.6 X10'3 (4.5-11.0)
[2021-04-02 03:58] LABS: ALANINE AMINOTRANSFERASE 53 U/L (12-78); ALBUMIN 1.4 G/DL (3.4-5.0); ALBUMIN/GLOBULIN RATIO 0.4 (1.1-1.5); ALKALINE PHOSPHATASE 105 IU/L (46-116); ANION GAP 9 (8-16); ASPARTATE AMINO TRANSFERASE 121 U/L (10-37); BILIRUBIN,TOTAL 1.1 MG/DL (0.1-1.0); BLOOD UREA NITROGEN 24 MG/DL (7-18); BUN/CREATININE RATIO 26.4 (5.4-32.0); CALCIUM 7.4 MG/DL (8.5-10.1); CHLORIDE 118 MMOL/L (99-107); CREATININE 0.91 MG/DL (0.60-1.10); GLUCOSE 107 MG/DL (70-104); MAGNESIUM 2.4 MG/DL (1.5-2.4); PHOSPHORUS 1.7 MG/DL (2.3-4.5); POTASSIUM 3.4 MMOL/L (3.5-5.1); SODIUM 148 MMOL/L (135-145); TOTAL CARBON DIOXIDE 21.3 MMOL/L (24-32); TOTAL PROTEIN 5.1 G/DL (6.4-8.2); eGFR 84 ML/MIN
[2021-04-02] MEDS ORDERED: potassium phosphate inj 15 MMOL in normal saline 250ml IV soln 250 ML IV ONE (05:05)
[2021-04-02] MEDS: FENTANYL-0.9 % NACL/PF 100 ML IV PRN ×3 (05:14→21:52)
--- NOTE | 2021-04-02 06:16 | NUR ---
Problems reprioritized. Patient report given, questions answered & plan of care reviewed with Rodri MARCELO.
[2021-04-02 08:22] LABS: ABG BASE EXCESS -2.2 mmol/L (-2.0-2.0); ABG HCO3 20.9 mmol/L (22.0-26.0); ABG OXYGEN SATURATION 93.4 % (94-97); ABG PCO2 (T) 29.5 mmHg (35.0-48.0); FCOHb 0.3 % (0.0-3.9); FMetHb 0.4 % (0.0-1.5); FO2Hb 92.7 % (94-97); PATIENT TEMPERATURE 36.8; PEEP 6 cm H2O; RESPIRATORY RATE 22 b/min; TIDAL VOLUME 510 mL; TOTAL HEMOGLOBIN 9.6 G/dl (14.0-18.0)
[2021-04-02] MEDS: losartan 25mg tablet PO SCH (08:36)
[2021-04-02] MEDS: docusate sodium 100mg/10ml UD cup PO SCH ×2 (08:36→20:40)
[2021-04-02] MEDS: CefTRIAXone 2gm/D5W 50ml BAG 50 ML IV SCH (08:36)
[2021-04-02] MEDS: pantoprazole 40 MG vial IV SCH (08:36)
--- NOTE | 2021-04-02 11:56 | NUR ---
TF Consult: TF okay to start at trickle and advance to goal as tolerated per Radius Corner Machine Operator, see recs below. Pt currently on D5 at 40ml/hr providing 163kcals/day. Will continue to monitor and adjust needs as medically indicated. Rec: 1. IF TF; Vital AF at 70ml/hr goal; to provide 1680ml volume/day, 2016 kcals, 1361ml water, and 126g protein. 2. IF TF; additional water flush 150ml Q4H 3. IF TF; PALB Q /; daily scaled wts 4. routine bowel care 5. upon extubation; advance diet as medically indicated to heart healthy Addendum: 04/02/21 at [address] Amended: Links added.
[2021-04-02] MEDS: midazolam 100mg in NS 100ml 100 ML IV PRN (12:01)
[2021-04-02 13:14] LABS: BASOPHILS % (AUTO) 0.3 % (0-1); EOSINOPHILS % (AUTO) 0.4 % (0-6); HEMATOCRIT 24.3 % (42.0-52.0); HEMOGLOBIN 8.4 g/dl (14.0-17.9); LYMPHOCYTES # (AUTO) 1.4 X10'3 (1.1-4.8); LYMPHOCYTES % (AUTO) 12.5 % (21-51); MEAN CORPUSCULAR HEMOGLOBIN 31.4 PG (27.0-31.0); MEAN CORPUSCULAR HGB CONC 34.6 g/dL (33.0-36.5); MEAN CORPUSCULAR VOLUME 90.9 FL (78-98); MEAN PLATELET VOLUME 7.8 FL (7.4-10.4); MONOCYTES # (AUTO) 0.8 X10'3 (0-0.9); MONOCYTES % (AUTO) 7.7 % (2-12); NEUTROPHILS # (AUTO) 8.6 X10'3 (1.8-7.7); NEUTROPHILS % (AUTO) 79.1 % (42-75); PLATELET COUNT 176 X10'3 (140-440); RED BLOOD COUNT 2.67 X10'6 (4.70-6.10); RED CELL DISTRIBUTION WIDTH 15.7 % (11.5-14.5); WHITE BLOOD COUNT 10.9 X10'3 (4.5-11.0)
[2021-04-02 13:27] LABS: PARTIAL THROMBOPLASTIN TIME 29 SECONDS (22-32)
[2021-04-02 14:35] LABS: ALANINE AMINOTRANSFERASE 48 U/L (12-78); ALBUMIN 1.3 G/DL (3.4-5.0); ALBUMIN/GLOBULIN RATIO 0.4 (1.1-1.5); ALKALINE PHOSPHATASE 100 IU/L (46-116); ANION GAP 10 (8-16); ASPARTATE AMINO TRANSFERASE 93 U/L (10-37); BLOOD UREA NITROGEN 22 MG/DL (7-18); BUN/CREATININE RATIO 25.9 (5.4-32.0); CALCIUM 7.1 MG/DL (8.5-10.1); CHLORIDE 118 MMOL/L (99-107); CREATININE 0.85 MG/DL (0.60-1.10); GLUCOSE 114 MG/DL (70-104); PHOSPHORUS 2.6 MG/DL (2.3-4.5); POTASSIUM 3.3 MMOL/L (3.5-5.1); SODIUM 149 MMOL/L (135-145); TOTAL CARBON DIOXIDE 20.7 MMOL/L (24-32); TOTAL PROTEIN 4.8 G/DL (6.4-8.2); eGFR 90 ML/MIN
[2021-04-02] MEDS ORDERED: potassium Cl 40MEQ/250ML bag 270 ML IV PRN (15:15)
[2021-04-02] MEDS: K and/or MAG REPLACEMENT MC SCH (19:33)
[2021-04-02] MEDS: lactobacillus rhamnosus 10,000 MMU CELLS/CAPSULE PO SCH (20:24)
[2021-04-02] MEDS: Dextrose 10%-water IV solution 1,000 ML IV SCH (23:40)
[2021-04-03] VITALS (25 sets, daily range): BP systolic 50–129; BP diastolic 46–70
[2021-04-03] MEDS: mineral oil/petrolatum ophthal oint EACHEYE SCH ×4 (02:41→20:21)
[2021-04-03 02:54] LABS: ABG BASE EXCESS -3.1 mmol/L (-2.0-2.0); ABG HCO3 19.9 mmol/L (22.0-26.0); ABG OXYGEN SATURATION 91.8 % (94-97); ABG PCO2 (T) 28.4 mmHg (35.0-48.0); ABG PO2 (T) 60.4 mmHg (75.0-100.0); FCOHb 0.3 % (0.0-3.9); FMetHb 0.2 % (0.0-1.5); FO2Hb 91.3 % (94-97); PATIENT TEMPERATURE 37.1; PEEP 6 cm H2O; RESPIRATORY RATE 16 b/min; TIDAL VOLUME 450 mL; TOTAL HEMOGLOBIN 9.5 G/dl (14.0-18.0)
[2021-04-03 03:15] LABS: BASOPHILS % (AUTO) 0.3 % (0-1); EOSINOPHILS # (AUTO) 0.1 X10'3 (0-0.9); HEMATOCRIT 26.2 % (42.0-52.0); HEMOGLOBIN 8.9 g/dl (14.0-17.9); LYMPHOCYTES # (AUTO) 1.3 X10'3 (1.1-4.8); LYMPHOCYTES % (AUTO) 10.9 % (21-51); MEAN CORPUSCULAR HEMOGLOBIN 30.7 PG (27.0-31.0); MEAN CORPUSCULAR HGB CONC 33.9 g/dL (33.0-36.5); MEAN CORPUSCULAR VOLUME 90.6 FL (78-98); MONOCYTES # (AUTO) 0.9 X10'3 (0-0.9); MONOCYTES % (AUTO) 7.9 % (2-12); NEUTROPHILS # (AUTO) 9.3 X10'3 (1.8-7.7); NEUTROPHILS % (AUTO) 79.9 % (42-75); PLATELET COUNT 210 X10'3 (140-440); RED BLOOD COUNT 2.89 X10'6 (4.70-6.10); WHITE BLOOD COUNT 11.7 X10'3 (4.5-11.0)
[2021-04-03 03:27] LABS: ALANINE AMINOTRANSFERASE 52 U/L (12-78); ALBUMIN 1.3 G/DL (3.4-5.0); ALBUMIN/GLOBULIN RATIO 0.4 (1.1-1.5); ALKALINE PHOSPHATASE 119 IU/L (46-116); ANION GAP 8 (8-16); ASPARTATE AMINO TRANSFERASE 95 U/L (10-37); BILIRUBIN,TOTAL 1.3 MG/DL (0.1-1.0); BLOOD UREA NITROGEN 24 MG/DL (7-18); BUN/CREATININE RATIO 29.3 (5.4-32.0); CALCIUM 7.3 MG/DL (8.5-10.1); CHLORIDE 118 MMOL/L (99-107); CREATININE 0.82 MG/DL (0.60-1.10); GLUCOSE 105 MG/DL (70-104); MAGNESIUM 2.4 MG/DL (1.5-2.4); PHOSPHORUS 1.9 MG/DL (2.3-4.5); POTASSIUM 3.4 MMOL/L (3.5-5.1); SODIUM 150 MMOL/L (135-145); TOTAL CARBON DIOXIDE 23.9 MMOL/L (24-32); TOTAL PROTEIN 4.9 G/DL (6.4-8.2); eGFR > 90 ML/MIN
[2021-04-03] MEDS ORDERED: potassium phosphate inj 30 MMOL in normal saline 500ml IV soln 500 ML IV ONE ×2 (04:45→04:50)
[2021-04-03] MEDS ORDERED: potassium phosphate inj 30 MMOL in normal saline 250ml IV soln 250 ML IV ONE (04:46)
--- NOTE | 2021-04-03 06:15 | NUR ---
Problems reprioritized. Patient report given, questions answered & plan of care reviewed with Rodri MARCELO.
[2021-04-03] MEDS: docusate sodium 100mg/10ml UD cup PO SCH ×2 (08:00→20:00)
[2021-04-03] MEDS: losartan 25mg tablet PO SCH (08:14)
[2021-04-03] MEDS: pantoprazole 40 MG vial IV SCH (08:14)
[2021-04-03] MEDS: lactobacillus rhamnosus 10,000 MMU CELLS/CAPSULE PO SCH ×2 (08:14→20:21)
[2021-04-03] MEDS: CefTRIAXone 2gm/D5W 50ml BAG 50 ML IV SCH (08:14)
[2021-04-03] MEDS: K and/or MAG REPLACEMENT MC SCH (08:15)
--- NOTE | 2021-04-03 11:46 | NUR ---
f/u 04/03: Serum Na 150 today, increase free water flush to 200ml Q4H per Bag Repairer, RN notified. Addendum: 04/03/21 at [address] Amended: Links added.
[2021-04-03 13:17] LABS: PHOSPHORUS 2.9 MG/DL (2.3-4.5); POTASSIUM 3.9 MMOL/L (3.5-5.1)
--- NOTE | 2021-04-03 18:15 | NUR ---
Patient in room ICU 2040. I have received report from Rodri and had the opportunity to ask questions and assume patient care.
[2021-04-03] MEDS: Dextrose 10%-water IV solution 1,000 ML IV SCH (18:40)
--- NOTE | 2021-04-03 22:49 | NUR ---
Found new wound during nightly bed bath. Wraps from Arterial line board were tight around L Hand, two nonblanching spots found. pictures taken and placed in chart. Wound care order put in .
[2021-04-04] VITALS (23 sets, daily range): BP systolic 81–140; BP diastolic 45–91
[2021-04-04 02:11] LABS: ABG BASE EXCESS -1.8 mmol/L (-2.0-2.0); ABG HCO3 21.5 mmol/L (22.0-26.0); ABG OXYGEN SATURATION 92.7 % (94-97); ABG PCO2 (T) 30.9 mmHg (35.0-48.0); ABG PO2 (T) 63.7 mmHg (75.0-100.0); FCOHb 0.3 % (0.0-3.9); FMetHb 0.4 % (0.0-1.5); FO2Hb 92.1 % (94-97); PATIENT TEMPERATURE 36.9; PEEP 6 cm H2O; RESPIRATORY RATE 16 b/min; TIDAL VOLUME 450 mL; TOTAL HEMOGLOBIN 9.4 G/dl (14.0-18.0)
[2021-04-04] MEDS: mineral oil/petrolatum ophthal oint EACHEYE SCH ×4 (02:11→20:02)
[2021-04-04] MEDS: FENTANYL-0.9 % NACL/PF 100 ML IV PRN ×2 (02:34→20:02)
[2021-04-04 03:11] LABS: BASOPHILS % (AUTO) 0.4 % (0-1); EOSINOPHILS # (AUTO) 0.2 X10'3 (0-0.9); EOSINOPHILS % (AUTO) 1.8 % (0-6); HEMATOCRIT 25.8 % (42.0-52.0); HEMOGLOBIN 8.6 g/dl (14.0-17.9); LYMPHOCYTES # (AUTO) 1.5 X10'3 (1.1-4.8); LYMPHOCYTES % (AUTO) 14.3 % (21-51); MEAN CORPUSCULAR HEMOGLOBIN 30.7 PG (27.0-31.0); MEAN CORPUSCULAR HGB CONC 33.4 g/dL (33.0-36.5); MEAN CORPUSCULAR VOLUME 91.9 FL (78-98); MONOCYTES # (AUTO) 0.8 X10'3 (0-0.9); MONOCYTES % (AUTO) 7.4 % (2-12); NEUTROPHILS % (AUTO) 76.1 % (42-75); PLATELET COUNT 235 X10'3 (140-440); RED CELL DISTRIBUTION WIDTH 15.4 % (11.5-14.5); WHITE BLOOD COUNT 10.5 X10'3 (4.5-11.0)
[2021-04-04 03:26] LABS: ALANINE AMINOTRANSFERASE 61 U/L (12-78); ALBUMIN 1.2 G/DL (3.4-5.0); ALBUMIN/GLOBULIN RATIO 0.3 (1.1-1.5); ALKALINE PHOSPHATASE 196 IU/L (46-116); ANION GAP 10 (8-16); ASPARTATE AMINO TRANSFERASE 96 U/L (10-37); BILIRUBIN,TOTAL 0.9 MG/DL (0.1-1.0); BLOOD UREA NITROGEN 26 MG/DL (7-18); BUN/CREATININE RATIO 31.3 (5.4-32.0); CALCIUM 7.1 MG/DL (8.5-10.1); CHLORIDE 119 MMOL/L (99-107); CREATININE 0.83 MG/DL (0.60-1.10); GLUCOSE 108 MG/DL (70-104); MAGNESIUM 2.2 MG/DL (1.5-2.4); PHOSPHORUS 2.8 MG/DL (2.3-4.5); POTASSIUM 3.6 MMOL/L (3.5-5.1); PREALBUMIN 6.7 MG/DL (19-36); SODIUM 151 MMOL/L (135-145); TOTAL CARBON DIOXIDE 22.3 MMOL/L (24-32); TOTAL PROTEIN 4.7 G/DL (6.4-8.2); eGFR > 90 ML/MIN
--- NOTE | 2021-04-04 06:17 | NUR ---
Problems reprioritized. Patient report given, questions answered & plan of care reviewed with Rodri.
[2021-04-04] MEDS: docusate sodium 100mg/10ml UD cup PO SCH ×2 (08:00→20:02)
[2021-04-04] MEDS: K and/or MAG REPLACEMENT MC SCH (08:00)
[2021-04-04] MEDS: losartan 25mg tablet PO SCH (08:43)
[2021-04-04] MEDS: pantoprazole 40 MG vial IV SCH (08:43)
[2021-04-04] MEDS: CefTRIAXone 2gm/D5W 50ml BAG 50 ML IV SCH (08:43)
[2021-04-04] MEDS: lactobacillus rhamnosus 10,000 MMU CELLS/CAPSULE PO SCH ×2 (08:43→20:01)
--- NOTE | 2021-04-04 11:09 | NUR ---
Reassessment: Pt continues to receive TF at goal of Vital AF at 70ml/hr tolerating well. Pt w/ serum Na 151 and D10 was started at 40ml/hr (326kcals) though to stop today per Slat Basket Maker Machine. LBM 03/03. No changes to nutrition intervention at this time, will continue to monitor. Rec: 1. Vital AF at 70ml/hr goal; to provide 1680ml volume/day, 2016 kcals, 1361ml water, and 126g protein. 2. additional water flush 200ml Q4H; monitor serum Na 3. PALB Q /; daily scaled wts 4. routine bowel care 5. upon extubation; advance diet as medically indicated to heart healthy Addendum: 04/04/21 at [address] Amended: Links added.
[2021-04-04] MEDS: dexmedetomidin/NS 400mcg/100ml 100 ML IV SCH ×2 (11:31→20:02)
--- NOTE | 2021-04-04 13:31 | NUR ---
F/u 04/04: Due to national shortage of Vital AF and Vital High Protein, if substitution necessary, recommend Pivot 1.5, see recs below for if substitution. Rec: 1. Vital AF at 70ml/hr goal; to provide 1680ml volume/day, 2016 kcals, 1361ml water, and 126g protein. 2. additional water flush 200ml Q4H; monitor serum Na 3. If out of Vital AF, sub Pivot 1.5 @ 55ml/hr providing 1320ml volume, 1980kcals, 123g Protein, 1003ml free water. Additional 250ml water flush 250ml Q4H 4. PALB Q /; daily scaled wts 5. routine bowel care 6. upon extubation; advance diet as medically indicated to heart healthy Addendum: 04/04/21 at [address] Amended: Links added.
[2021-04-05] VITALS (23 sets, daily range): BP systolic 101–150; BP diastolic 51–88
[2021-04-05] MEDS: Dextrose 10%-water IV solution 1,000 ML IV SCH (00:35)
--- NOTE | 2021-04-05 01:19 | NUR ---
Per repoD10 was started at 40ml/hr (326kcals) though to stop today per Tuber Machine Operator Helper Addendum: 04/05/21 at 0120 by Angela Ribera RN Per report from the day shift nurse, D10 was stop per Tuber Machine Operator Helper
[2021-04-05] MEDS: mineral oil/petrolatum ophthal oint EACHEYE SCH ×4 (01:21→20:33)
[2021-04-05 02:32] LABS: ABG HCO3 21.5 mmol/L (22.0-26.0); ABG OXYGEN SATURATION 93.4 % (94-97); ABG PCO2 (T) 27.9 mmHg (35.0-48.0); ABG PO2 (T) 64.9 mmHg (75.0-100.0); FCOHb 0.3 % (0.0-3.9); FMetHb 0.3 % (0.0-1.5); FO2Hb 92.8 % (94-97); PATIENT TEMPERATURE 36.9; PEEP 5 cm H2O; TIDAL VOLUME 450 mL; TOTAL HEMOGLOBIN 9.6 G/dl (14.0-18.0)
[2021-04-05 03:07] LABS: BASOPHILS # (AUTO) 0.1 X10'3 (0-0.2); BASOPHILS % (AUTO) 0.6 % (0-1); EOSINOPHILS # (AUTO) 0.2 X10'3 (0-0.9); EOSINOPHILS % (AUTO) 1.3 % (0-6); HEMATOCRIT 26.2 % (42.0-52.0); HEMOGLOBIN 8.9 g/dl (14.0-17.9); LYMPHOCYTES # (AUTO) 1.6 X10'3 (1.1-4.8); LYMPHOCYTES % (AUTO) 11.4 % (21-51); MEAN CORPUSCULAR HEMOGLOBIN 30.5 PG (27.0-31.0); MEAN CORPUSCULAR VOLUME 89.7 FL (78-98); MEAN PLATELET VOLUME 7.8 FL (7.4-10.4); MONOCYTES # (AUTO) 0.8 X10'3 (0-0.9); MONOCYTES % (AUTO) 5.6 % (2-12); NEUTROPHILS # (AUTO) 11.3 X10'3 (1.8-7.7); NEUTROPHILS % (AUTO) 81.1 % (42-75); PLATELET COUNT 292 X10'3 (140-440); RED BLOOD COUNT 2.93 X10'6 (4.70-6.10); RED CELL DISTRIBUTION WIDTH 16.2 % (11.5-14.5); WHITE BLOOD COUNT 13.9 X10'3 (4.5-11.0)
[2021-04-05 03:17] LABS: ALANINE AMINOTRANSFERASE 73 U/L (12-78); ALBUMIN 1.3 G/DL (3.4-5.0); ALBUMIN/GLOBULIN RATIO 0.3 (1.1-1.5); ALKALINE PHOSPHATASE 271 IU/L (46-116); ANION GAP 10 (8-16); ASPARTATE AMINO TRANSFERASE 104 U/L (10-37); BILIRUBIN,TOTAL 0.8 MG/DL (0.1-1.0); BLOOD UREA NITROGEN 28 MG/DL (7-18); BUN/CREATININE RATIO 33.3 (5.4-32.0); CALCIUM 7.3 MG/DL (8.5-10.1); CHLORIDE 116 MMOL/L (99-107); CREATININE 0.84 MG/DL (0.60-1.10); GLUCOSE 115 MG/DL (70-104); PHOSPHORUS 3.1 MG/DL (2.3-4.5); POTASSIUM 3.6 MMOL/L (3.5-5.1); SODIUM 149 MMOL/L (135-145); TOTAL CARBON DIOXIDE 23.3 MMOL/L (24-32); TOTAL PROTEIN 5.2 G/DL (6.4-8.2); eGFR > 90 ML/MIN
[2021-04-05] MEDS: dexmedetomidin/NS 400mcg/100ml 100 ML IV SCH ×2 (04:38→19:18)
--- NOTE | 2021-04-05 06:25 | NUR ---
REPORT GIVEN TO NICHOLE/RN
[2021-04-05] MEDS: K and/or MAG REPLACEMENT MC SCH (08:00)
[2021-04-05] MEDS: docusate sodium 100mg/10ml UD cup PO SCH ×2 (08:00→20:00)
[2021-04-05] MEDS: losartan 25mg tablet PO SCH (08:00)
[2021-04-05] MEDS: pantoprazole 40 MG vial IV SCH (08:17)
[2021-04-05] MEDS: CefTRIAXone 2gm/D5W 50ml BAG 50 ML IV SCH (08:17)
[2021-04-05] MEDS: lactobacillus rhamnosus 10,000 MMU CELLS/CAPSULE PO SCH ×2 (08:18→20:33)
[2021-04-05] MEDS ORDERED: ipratropium/albuterol 3ml nebule NEB PRN (09:25)
[2021-04-05] MEDS ORDERED: CADD PCA waste documentation MC PRN (09:25)
[2021-04-05] MEDS ORDERED: naloxone 0.4 mg/ml inj IV PRN (09:25)
[2021-04-05] MEDS ORDERED: racepinephrine 11.25mg/0.5ml nebule NEB PRN (09:25)
--- NOTE | 2021-04-05 10:42 | NUR ---
Patient extubated at 1035 per MD order. Placed on NC 3L NC. Family at bedside.
[2021-04-05] MEDS: HYDROmorph./NS 0.2 mg/ml CADD 100 ML IV SCH ×7 (11:00→23:00)
[2021-04-05] MEDS: ipratropium/albuterol 3ml nebule NEB SCH ×2 (15:15→21:29)
[2021-04-05] MEDS: temazepam 15mg capsule PO PRN (20:33)
[2021-04-06] VITALS (23 sets, daily range): BP systolic 115–151; BP diastolic 62–90
[2021-04-06] MEDS: HYDROmorph./NS 0.2 mg/ml CADD 100 ML IV SCH ×6 (01:00→11:00)
[2021-04-06] MEDS: Dextrose 10%-water IV solution 1,000 ML IV SCH (01:35)
[2021-04-06] MEDS: mineral oil/petrolatum ophthal oint EACHEYE SCH ×2 (01:48→08:00)
[2021-04-06] MEDS: ipratropium/albuterol 3ml nebule NEB SCH ×4 (02:08→20:15)
[2021-04-06] MEDS: dexmedetomidin/NS 400mcg/100ml 100 ML IV SCH (05:31)
[2021-04-06 06:28] LABS: BASOPHILS % (AUTO) 0.1 % (0-1); EOSINOPHILS # (AUTO) 0.1 X10'3 (0-0.9); EOSINOPHILS % (AUTO) 0.3 % (0-6); HEMATOCRIT 27.3 % (42.0-52.0); HEMOGLOBIN 9.1 g/dl (14.0-17.9); LYMPHOCYTES # (AUTO) 1.3 X10'3 (1.1-4.8); LYMPHOCYTES % (AUTO) 7.1 % (21-51); MEAN CORPUSCULAR HGB CONC 33.2 g/dL (33.0-36.5); MEAN CORPUSCULAR VOLUME 90.3 FL (78-98); MEAN PLATELET VOLUME 8.3 FL (7.4-10.4); MONOCYTES # (AUTO) 0.9 X10'3 (0-0.9); MONOCYTES % (AUTO) 4.7 % (2-12); NEUTROPHILS # (AUTO) 16.4 X10'3 (1.8-7.7); NEUTROPHILS % (AUTO) 87.8 % (42-75); PLATELET COUNT 344 X10'3 (140-440); RED BLOOD COUNT 3.02 X10'6 (4.70-6.10); RED CELL DISTRIBUTION WIDTH 15.6 % (11.5-14.5); WHITE BLOOD COUNT 18.7 X10'3 (4.5-11.0)
[2021-04-06 06:48] LABS: ALANINE AMINOTRANSFERASE 76 U/L (12-78); ALBUMIN 1.4 G/DL (3.4-5.0); ALBUMIN/GLOBULIN RATIO 0.4 (1.1-1.5); ALKALINE PHOSPHATASE 292 IU/L (46-116); ANION GAP 7 (8-16); ASPARTATE AMINO TRANSFERASE 116 U/L (10-37); BLOOD UREA NITROGEN 22 MG/DL (7-18); BUN/CREATININE RATIO 24.2 (5.4-32.0); CALCIUM 7.3 MG/DL (8.5-10.1); CHLORIDE 114 MMOL/L (99-107); CREATININE 0.91 MG/DL (0.60-1.10); GLUCOSE 115 MG/DL (70-104); MAGNESIUM 1.9 MG/DL (1.5-2.4); PHOSPHORUS 2.5 MG/DL (2.3-4.5); SODIUM 145 MMOL/L (135-145); TOTAL CARBON DIOXIDE 23.9 MMOL/L (24-32); TOTAL PROTEIN 5.1 G/DL (6.4-8.2); eGFR 84 ML/MIN
[2021-04-06 06:52] LABS: POTASSIUM 2.9 MMOL/L (3.5-5.1)
[2021-04-06] MEDS: potassium Cl 40MEQ/1/2NS 520ml 520 ML IV PRN (07:53)
[2021-04-06] MEDS: K and/or MAG REPLACEMENT MC SCH (08:00)
[2021-04-06] MEDS: losartan 25mg tablet PO SCH ×2 (08:00→10:05)
[2021-04-06] MEDS: docusate sodium 100mg/10ml UD cup PO SCH ×2 (08:00→19:37)
[2021-04-06] MEDS: CefTRIAXone 2gm/D5W 50ml BAG 50 ML IV SCH (10:05)
[2021-04-06] MEDS: pantoprazole 40 MG vial IV SCH (10:05)
[2021-04-06] MEDS: lactobacillus rhamnosus 10,000 MMU CELLS/CAPSULE PO SCH ×2 (10:06→20:02)
[2021-04-06] MEDS: HYDROcodone/acetaminophen 5mg/325mg tablet PO PRN (14:01)
[2021-04-06] MEDS: temazepam 15mg capsule PO PRN (20:02)
[2021-04-07] VITALS (21 sets, daily range): BP systolic 117–158; BP diastolic 65–88
[2021-04-07] MEDS: Dextrose 10%-water IV solution 1,000 ML IV SCH (02:35)
[2021-04-07 02:54] LABS: ALANINE AMINOTRANSFERASE 83 U/L (12-78); ALBUMIN 1.7 G/DL (3.4-5.0); ALBUMIN/GLOBULIN RATIO 0.4 (1.1-1.5); ALKALINE PHOSPHATASE 288 IU/L (46-116); ANION GAP 10 (8-16); ASPARTATE AMINO TRANSFERASE 109 U/L (10-37); BILIRUBIN,TOTAL 1.4 MG/DL (0.1-1.0); BLOOD UREA NITROGEN 19 MG/DL (7-18); BUN/CREATININE RATIO 21.8 (5.4-32.0); CALCIUM 7.7 MG/DL (8.5-10.1); CHLORIDE 110 MMOL/L (99-107); CREATININE 0.87 MG/DL (0.60-1.10); GLUCOSE 90 MG/DL (70-104); MAGNESIUM 2.1 MG/DL (1.5-2.4); PHOSPHORUS 3.3 MG/DL (2.3-4.5); POTASSIUM 3.8 MMOL/L (3.5-5.1); SODIUM 145 MMOL/L (135-145); TOTAL CARBON DIOXIDE 25.4 MMOL/L (24-32); TOTAL PROTEIN 5.7 G/DL (6.4-8.2); eGFR 88 ML/MIN
[2021-04-07] MEDS: ipratropium/albuterol 3ml nebule NEB SCH ×4 (03:00→20:52)
[2021-04-07 03:02] LABS: BASOPHILS % (AUTO) 0.2 % (0-1); EOSINOPHILS # (AUTO) 0.1 X10'3 (0-0.9); EOSINOPHILS % (AUTO) 0.7 % (0-6); HEMATOCRIT 28.3 % (42.0-52.0); HEMOGLOBIN 9.5 g/dl (14.0-17.9); LYMPHOCYTES # (AUTO) 1.7 X10'3 (1.1-4.8); LYMPHOCYTES % (AUTO) 8.7 % (21-51); MEAN CORPUSCULAR HEMOGLOBIN 29.9 PG (27.0-31.0); MEAN CORPUSCULAR HGB CONC 33.4 g/dL (33.0-36.5); MEAN CORPUSCULAR VOLUME 89.6 FL (78-98); MEAN PLATELET VOLUME 8.4 FL (7.4-10.4); MONOCYTES # (AUTO) 0.7 X10'3 (0-0.9); MONOCYTES % (AUTO) 3.7 % (2-12); NEUTROPHILS # (AUTO) 16.4 X10'3 (1.8-7.7); NEUTROPHILS % (AUTO) 86.7 % (42-75); PLATELET COUNT 399 X10'3 (140-440); RED BLOOD COUNT 3.16 X10'6 (4.70-6.10); RED CELL DISTRIBUTION WIDTH 15.6 % (11.5-14.5); WHITE BLOOD COUNT 18.9 X10'3 (4.5-11.0)
[2021-04-07 07:14] LABS: PLATELET ESTIMATE NORMAL; TOTAL CELLS COUNTED 100
[2021-04-07] MEDS: docusate sodium 100mg/10ml UD cup PO SCH ×2 (08:00→19:28)
[2021-04-07] MEDS: pantoprazole 40 MG vial IV SCH (08:00)
[2021-04-07] MEDS: K and/or MAG REPLACEMENT MC SCH (08:00)
[2021-04-07] MEDS: CefTRIAXone 2gm/D5W 50ml BAG 50 ML IV SCH (08:10)
[2021-04-07] MEDS: losartan 25mg tablet PO SCH ×2 (08:11→08:20)
[2021-04-07] MEDS: lactobacillus rhamnosus 10,000 MMU CELLS/CAPSULE PO SCH ×2 (08:12→08:18)
--- NOTE | 2021-04-07 09:49 | NUR ---
PT REFUSED TO TAKE MORNING SVN. RN PRESENT
[2021-04-07] MEDS: HYDROcodone/acetaminophen 5mg/325mg tablet PO PRN (10:30)
--- NOTE | 2021-04-07 13:53 | NUR ---
pt continues to refuse svn stati ng he doesn't need them
[2021-04-07] MEDS ORDERED: Melatonin 3mg tablet PO ONE (17:25)
[2021-04-07] MEDS ORDERED: risperiDONE 0.5mg tablet PO ONE (17:25)
--- NOTE | 2021-04-07 17:48 | NUR ---
1700- patient was more clear throughout day, mostly cooperative, sun has set and patient is now paranoid, trying to climb out of bed, believes someone is going to try and kill him, knock him on the head, or shoot him, "I heard them say that". Call placed to Dr Mariee, or for risperdal and melatonin, however patient too paranoid to take it, sitter at bedside for safety.
[2021-04-08] VITALS (15 sets, daily range): BP systolic 118–138; BP diastolic 64–84
[2021-04-08] MEDS: ipratropium/albuterol 3ml nebule NEB SCH ×4 (02:28→20:50)
[2021-04-08 03:04] LABS: BASOPHILS % (AUTO) 0.3 % (0-1); EOSINOPHILS # (AUTO) 0.1 X10'3 (0-0.9); EOSINOPHILS % (AUTO) 0.8 % (0-6); HEMATOCRIT 28.9 % (42.0-52.0); HEMOGLOBIN 9.4 g/dl (14.0-17.9); LYMPHOCYTES # (AUTO) 1.2 X10'3 (1.1-4.8); MEAN CORPUSCULAR HEMOGLOBIN 29.1 PG (27.0-31.0); MEAN CORPUSCULAR HGB CONC 32.7 g/dL (33.0-36.5); MEAN CORPUSCULAR VOLUME 89.1 FL (78-98); MEAN PLATELET VOLUME 8.4 FL (7.4-10.4); MONOCYTES # (AUTO) 0.8 X10'3 (0-0.9); MONOCYTES % (AUTO) 4.6 % (2-12); NEUTROPHILS # (AUTO) 14.4 X10'3 (1.8-7.7); NEUTROPHILS % (AUTO) 87.3 % (42-75); PLATELET COUNT 470 X10'3 (140-440); RED BLOOD COUNT 3.24 X10'6 (4.70-6.10); RED CELL DISTRIBUTION WIDTH 15.5 % (11.5-14.5); WHITE BLOOD COUNT 16.5 X10'3 (4.5-11.0)
[2021-04-08 03:18] LABS: ALANINE AMINOTRANSFERASE 73 U/L (12-78); ALBUMIN 1.7 G/DL (3.4-5.0); ALBUMIN/GLOBULIN RATIO 0.4 (1.1-1.5); ALKALINE PHOSPHATASE 228 IU/L (46-116); ANION GAP 11 (8-16); ASPARTATE AMINO TRANSFERASE 75 U/L (10-37); BILIRUBIN,TOTAL 1.1 MG/DL (0.1-1.0); BLOOD UREA NITROGEN 16 MG/DL (7-18); BUN/CREATININE RATIO 18.2 (5.4-32.0); CALCIUM 7.4 MG/DL (8.5-10.1); CHLORIDE 108 MMOL/L (99-107); CREATININE 0.88 MG/DL (0.60-1.10); GLUCOSE 92 MG/DL (70-104); MAGNESIUM 2.1 MG/DL (1.5-2.4); PHOSPHORUS 3.1 MG/DL (2.3-4.5); POTASSIUM 3.1 MMOL/L (3.5-5.1); SODIUM 143 MMOL/L (135-145); TOTAL CARBON DIOXIDE 24.2 MMOL/L (24-32); TOTAL PROTEIN 5.7 G/DL (6.4-8.2); eGFR 87 ML/MIN
[2021-04-08] MEDS: Dextrose 10%-water IV solution 1,000 ML IV SCH (03:35)
[2021-04-08 05:16] LABS: TOTAL CELLS COUNTED 100
[2021-04-08 05:18] LABS: PLATELET ESTIMATE INCREASED
[2021-04-08] MEDS: potassium Cl 40MEQ/1/2NS 520ml 520 ML IV PRN (06:09)
[2021-04-08] MEDS: docusate sodium 100mg/10ml UD cup PO SCH ×2 (08:00→20:00)
[2021-04-08] MEDS: lactobacillus rhamnosus 10,000 MMU CELLS/CAPSULE PO SCH ×2 (08:00→20:00)
[2021-04-08] MEDS: K and/or MAG REPLACEMENT MC SCH (08:01)
[2021-04-08] MEDS: CefTRIAXone 2gm/D5W 50ml BAG 50 ML IV SCH (08:59)
--- NOTE | 2021-04-08 09:21 | NUR ---
0900- pt highly agitated, trying to get oob, wants to go home, knows my name remembers our conversation from earlier but then starts with paranoia and non-sensical coversations. here as well as bed side sitter to keep safe. Pt has not slept in 3 days.
[2021-04-08] MEDS ORDERED: ziprasidone IM 20mg inj **IM only IM ONE (10:15)
[2021-04-08] MEDS: magnesium oxide 400mg tablet PO SCH (13:36)
[2021-04-08] MEDS: multivitamins, therapeutics tablet PO SCH (13:36)
[2021-04-08] MEDS: OMEGA-3/DHA/EPA/FISH OIL 1 EACH CAPSULE.DR PO SCH (13:37)
--- NOTE | 2021-04-08 14:57 | NUR ---
Problems reprioritized. Patient report given, questions answered & plan of care reviewed with Katarzyna, patient transferred to PCU with all belongings. .
--- NOTE | 2021-04-08 16:09 | NUR ---
RT TREATMENT ENDED EARLY. PT SAID HE DID NOT WANT ANYMORE AND REFUSED TO PUT MASK BACK ON. REST OF MEDICATION WASTED. PT IN NO RESP DISTRESS. IS CONFUSED. HAS A SITTER. Addendum: 04/08/21 at 1610 by Dudley Mix RT Amended: Links added.
--- NOTE | 2021-04-08 18:10 | NUR ---
Patient in room PCU 3014. I have received report from FOZIA Colón and had the opportunity to ask questions and assume patient care.
[2021-04-09] VITALS: BP 138/75
[2021-04-09] MEDS: ipratropium/albuterol 3ml nebule NEB SCH ×4 (02:46→21:00)
[2021-04-09 04:00] VITALS: BP 127/71
[2021-04-09] MEDS: Dextrose 10%-water IV solution 1,000 ML IV SCH (04:35)
--- NOTE | 2021-04-09 05:18 | NUR ---
Patient had refused all his meds, explained the importance of taking his meds but continue to refused them all. He's been awake all night, very agitated, argumentative, trying to removed dejesus during the night. Sitter at bedside all night. Safety measures and comfort maintained. Will continue to monitor.
--- NOTE | 2021-04-09 06:18 | NUR ---
Problems reprioritized. Patient report given, questions answered & plan of care reviewed with FOZIA Robbins.
[2021-04-09 06:58] LABS: BASOPHILS % (AUTO) 0.3 % (0-1); EOSINOPHILS # (AUTO) 0.1 X10'3 (0-0.9); HEMOGLOBIN 9.5 g/dl (14.0-17.9); LYMPHOCYTES # (AUTO) 1.1 X10'3 (1.1-4.8); LYMPHOCYTES % (AUTO) 7.5 % (21-51); MEAN CORPUSCULAR HEMOGLOBIN 30.2 PG (27.0-31.0); MEAN CORPUSCULAR HGB CONC 33.9 g/dL (33.0-36.5); MONOCYTES # (AUTO) 0.8 X10'3 (0-0.9); MONOCYTES % (AUTO) 5.2 % (2-12); PLATELET COUNT 579 X10'3 (140-440); RED BLOOD COUNT 3.15 X10'6 (4.70-6.10); RED CELL DISTRIBUTION WIDTH 15.4 % (11.5-14.5); WHITE BLOOD COUNT 15.1 X10'3 (4.5-11.0)
[2021-04-09 07:33] LABS: ALANINE AMINOTRANSFERASE 73 U/L (12-78); ALBUMIN 1.9 G/DL (3.4-5.0); ALBUMIN/GLOBULIN RATIO 0.5 (1.1-1.5); ALKALINE PHOSPHATASE 247 IU/L (46-116); ANION GAP 12 (8-16); ASPARTATE AMINO TRANSFERASE 72 U/L (10-37); BLOOD UREA NITROGEN 14 MG/DL (7-18); BUN/CREATININE RATIO 16.1 (5.4-32.0); CALCIUM 7.6 MG/DL (8.5-10.1); CHLORIDE 109 MMOL/L (99-107); CREATININE 0.87 MG/DL (0.60-1.10); GLUCOSE 94 MG/DL (70-104); MAGNESIUM 2.3 MG/DL (1.5-2.4); PHOSPHORUS 3.2 MG/DL (2.3-4.5); POTASSIUM 3.4 MMOL/L (3.5-5.1); SODIUM 144 MMOL/L (135-145); TOTAL CARBON DIOXIDE 22.8 MMOL/L (24-32); TOTAL PROTEIN 5.8 G/DL (6.4-8.2); eGFR 88 ML/MIN
[2021-04-09 08:00] VITALS: BP 134/63
[2021-04-09] MEDS: lactobacillus rhamnosus 10,000 MMU CELLS/CAPSULE PO SCH ×2 (08:00→20:34)
[2021-04-09] MEDS: multivitamins, therapeutics tablet PO SCH (08:00)
[2021-04-09] MEDS: docusate sodium 100mg/10ml UD cup PO SCH ×2 (08:00→20:32)
[2021-04-09] MEDS: losartan 25mg tablet PO SCH (08:00)
[2021-04-09] MEDS: OMEGA-3/DHA/EPA/FISH OIL 1 EACH CAPSULE.DR PO SCH (08:00)
[2021-04-09] MEDS: magnesium oxide 400mg tablet PO SCH (08:00)
[2021-04-09 11:21] VITALS: BP 115/72
--- NOTE | 2021-04-09 11:21 | NUR ---
Reassessment: Pt extubated 04/05. Per EMR pt has been confused, agitated, paranoid, not sleeping, and refusing medications, with a sitter at bedside. Following extubation pt was placed on a mechanical soft (EC7) diet however was not approved for a PO diet by ST until 04/[address] states pt tolerating current diet. Pt with fluctuating PO intake, documented with only 50% PO intake x 1 meal on 04/07 with refusal of breakfast 04/08 and 50% PO intake of lunch 04/08, though with 100% PO intake at two most recent meals. No nutrition intervention implemented at this time given recent increase in PO intake. Noted wound care has been consulted for open area to inner thigh. Previous wound care notes state pt with pressure ulcer to medial left palm with intact DTI to left lateral palm. LBM 04/08. Will continue to follow and make recommendations as appropriate. Recommendations: 1) Continue EC7 diet; monitor need to chop food 2) Monitor need for ONS/additional protein 3) Monitor need to assist with meals given altered mentation 4) Routine bowel care 5) Weekly scaled weights Addendum: 04/09/21 at [address] Amended: Links added.
--- NOTE | 2021-04-09 12:50 | NUR ---
was paged 2 in reference to concern for impaired motor controlled of bilateral extremities as per PT findings.
--- NOTE | 2021-04-09 13:09 | NUR ---
was paged to inform of impaired motor com Addendum: 04/09/21 at 1310 by Katarzyna Ribera RN controlled of bilateral extremities Addendum: 04/09/21 at 1331 by Katarzyna Ribera RN Correction
--- NOTE | 2021-04-09 13:10 | NUR ---
Stroke alert was called due to findings of impaired motor controlled of bilateral extremity. Patient base line with no significant mobility impairment.
--- NOTE | 2021-04-09 13:40 | NUR ---
called reported not his patient, was called and left voice message.
--- NOTE | 2021-04-09 14:00 | NUR ---
Dr Guzman notified of stroke alert, requested neurology consult and MRI of the head.
[2021-04-09 16:18] VITALS: BP 110/63
[2021-04-09] MEDS ORDERED: iohexol 350MG/ML 100ml bottle IV ONE (18:05)
--- NOTE | 2021-04-09 18:20 | NUR ---
Patient in room PCU 3014. I have received report from FOZIA Colón and had the opportunity to ask questions and assume patient care.
[2021-04-09 20:00] VITALS: BP 128/65
[2021-04-09] MEDS: thiamine inj. 500 MG in normal saline 100ml IV soln 100 ML IV SCH (23:30)
--- NOTE | 2021-04-09 23:32 | NUR ---
Patient refused to take the Thiamine IV meds, explained the importance of taking the meds but he still refused. Sitter at bedside. Will continue to monitor.
[2021-04-10] VITALS (7 sets, daily range): BP systolic 103–130; BP diastolic 42–76
[2021-04-10] MEDS ORDERED: thiamine 100mg/ml 2ml inj. IV SCH
[2021-04-10] MEDS ORDERED: THIAMINE IV SCH ×2
[2021-04-10] MEDS ORDERED: NORMAL SALINE IV SCH ×2
[2021-04-10] MEDS: ipratropium/albuterol 3ml nebule NEB SCH ×4 (02:38→19:54)
[2021-04-10] MEDS: Dextrose 10%-water IV solution 1,000 ML IV SCH (05:14)
[2021-04-10 06:52] LABS: BASOPHILS # (AUTO) 0.1 X10'3 (0-0.2); BASOPHILS % (AUTO) 0.6 % (0-1); EOSINOPHILS # (AUTO) 0.2 X10'3 (0-0.9); EOSINOPHILS % (AUTO) 1.6 % (0-6); HEMATOCRIT 26.7 % (42.0-52.0); HEMOGLOBIN 8.9 g/dl (14.0-17.9); LYMPHOCYTES # (AUTO) 1.2 X10'3 (1.1-4.8); LYMPHOCYTES % (AUTO) 9.5 % (21-51); MEAN CORPUSCULAR HGB CONC 33.5 g/dL (33.0-36.5); MEAN CORPUSCULAR VOLUME 89.8 FL (78-98); MEAN PLATELET VOLUME 7.8 FL (7.4-10.4); MONOCYTES # (AUTO) 0.8 X10'3 (0-0.9); MONOCYTES % (AUTO) 6.5 % (2-12); NEUTROPHILS # (AUTO) 10.7 X10'3 (1.8-7.7); NEUTROPHILS % (AUTO) 81.8 % (42-75); PLATELET COUNT 599 X10'3 (140-440); RED BLOOD COUNT 2.98 X10'6 (4.70-6.10); RED CELL DISTRIBUTION WIDTH 15.6 % (11.5-14.5); WHITE BLOOD COUNT 13.1 X10'3 (4.5-11.0)
--- NOTE | 2021-04-10 07:26 | NUR ---
Patient in room PCU 3023. I have received report from Ayde MARCELO and had the opportunity to ask questions and assume patient care.
[2021-04-10 07:40] LABS: PLATELET ESTIMATE INCREASED; TOTAL CELLS COUNTED 100
[2021-04-10 07:44] LABS: ALANINE AMINOTRANSFERASE 68 U/L (12-78); ALBUMIN 1.8 G/DL (3.4-5.0); ALBUMIN/GLOBULIN RATIO 0.5 (1.1-1.5); ALKALINE PHOSPHATASE 213 IU/L (46-116); ANION GAP 10 (8-16); ASPARTATE AMINO TRANSFERASE 58 U/L (10-37); BILIRUBIN,TOTAL 0.7 MG/DL (0.1-1.0); BLOOD UREA NITROGEN 15 MG/DL (7-18); CALCIUM 7.4 MG/DL (8.5-10.1); CHLORIDE 108 MMOL/L (99-107); CREATININE 0.79 MG/DL (0.60-1.10); GLUCOSE 96 MG/DL (70-104); MAGNESIUM 2.2 MG/DL (1.5-2.4); PHOSPHORUS 3.1 MG/DL (2.3-4.5); POTASSIUM 3.8 MMOL/L (3.5-5.1); SODIUM 141 MMOL/L (135-145); TOTAL CARBON DIOXIDE 22.8 MMOL/L (24-32); TOTAL PROTEIN 5.4 G/DL (6.4-8.2); eGFR > 90 ML/MIN
[2021-04-10] MEDS: magnesium oxide 400mg tablet PO SCH (08:00)
[2021-04-10] MEDS: multivitamins, therapeutics tablet PO SCH (08:00)
[2021-04-10] MEDS: losartan 25mg tablet PO SCH (08:00)
[2021-04-10] MEDS: docusate sodium 100mg/10ml UD cup PO SCH ×2 (08:00→20:27)
[2021-04-10] MEDS: lactobacillus rhamnosus 10,000 MMU CELLS/CAPSULE PO SCH ×2 (08:00→20:27)
[2021-04-10] MEDS: thiamine inj. 500 MG in normal saline 100ml IV soln 100 ML IV SCH ×3 (08:00→20:28)
[2021-04-10] MEDS: OMEGA-3/DHA/EPA/FISH OIL 1 EACH CAPSULE.DR PO SCH (08:00)
--- NOTE | 2021-04-10 08:36 | NUR ---
patient is non-compliant. Refuses all medications.
[2021-04-10] MEDS: levoFLOXACIN-Levaquin 500mg/D5 100 ML IV SCH (11:01)
--- NOTE | 2021-04-10 18:10 | NUR ---
Patient in room PCU 3023. I have received report from FOZIA Aguillon and had the opportunity to ask questions and assume patient care.
--- NOTE | 2021-04-10 18:19 | NUR ---
Problems reprioritized. Patient report given, questions answered & plan of care reviewed with Olivia MARCELO.
[2021-04-11 02:00] VITALS: BP 132/67
[2021-04-11] MEDS: ipratropium/albuterol 3ml nebule NEB SCH ×2 (03:00→09:00)
[2021-04-11 06:00] VITALS: BP 119/63
--- NOTE | 2021-04-11 06:08 | NUR ---
Problems reprioritized. Patient report given, questions answered & plan of care reviewed with FOZIA Aguillon.
--- NOTE | 2021-04-11 06:25 | NUR ---
Patient in room PCU 3023. I have received report from Olivia MARCELO and had the opportunity to ask questions and assume patient care.
[2021-04-11] MEDS: Dextrose 10%-water IV solution 1,000 ML IV SCH (06:35)
[2021-04-11 07:34] LABS: BASOPHILS # (AUTO) 0.1 X10'3 (0-0.2); HEMOGLOBIN 8.9 g/dl (14.0-17.9); LYMPHOCYTES # (AUTO) 1.2 X10'3 (1.1-4.8); MEAN CORPUSCULAR HEMOGLOBIN 29.8 PG (27.0-31.0)
[2021-04-11 07:37] LABS: BASOPHILS % (AUTO) 0.7 % (0-1); EOSINOPHILS # (AUTO) 0.2 X10'3 (0-0.9); EOSINOPHILS % (AUTO) 1.5 % (0-6); HEMATOCRIT 26.9 % (42.0-52.0); LYMPHOCYTES % (AUTO) 10.1 % (21-51); MEAN CORPUSCULAR HGB CONC 33.2 g/dL (33.0-36.5); MEAN CORPUSCULAR VOLUME 89.8 FL (78-98); MEAN PLATELET VOLUME 7.6 FL (7.4-10.4); MONOCYTES # (AUTO) 0.9 X10'3 (0-0.9); MONOCYTES % (AUTO) 7.5 % (2-12); NEUTROPHILS # (AUTO) 9.3 X10'3 (1.8-7.7); NEUTROPHILS % (AUTO) 80.2 % (42-75); PLATELET COUNT 640 X10'3 (140-440); RED CELL DISTRIBUTION WIDTH 15.4 % (11.5-14.5); WHITE BLOOD COUNT 11.6 X10'3 (4.5-11.0)
[2021-04-11 07:56] LABS: ALANINE AMINOTRANSFERASE 55 U/L (12-78); ALBUMIN 1.8 G/DL (3.4-5.0); ALBUMIN/GLOBULIN RATIO 0.5 (1.1-1.5); ALKALINE PHOSPHATASE 190 IU/L (46-116); ANION GAP 10 (8-16); ASPARTATE AMINO TRANSFERASE 41 U/L (10-37); BILIRUBIN,TOTAL 0.7 MG/DL (0.1-1.0); BLOOD UREA NITROGEN 12 MG/DL (7-18); BUN/CREATININE RATIO 14.5 (5.4-32.0); CALCIUM 7.4 MG/DL (8.5-10.1); CHLORIDE 109 MMOL/L (99-107); CREATININE 0.83 MG/DL (0.60-1.10); GLUCOSE 92 MG/DL (70-104); POTASSIUM 3.5 MMOL/L (3.5-5.1); SODIUM 142 MMOL/L (135-145); TOTAL CARBON DIOXIDE 23.4 MMOL/L (24-32); TOTAL PROTEIN 5.5 G/DL (6.4-8.2); eGFR > 90 ML/MIN
[2021-04-11] MEDS: docusate sodium 100mg/10ml UD cup PO SCH (08:00)
[2021-04-11] MEDS: thiamine inj. 500 MG in normal saline 100ml IV soln 100 ML IV SCH (08:00)
[2021-04-11] MEDS: losartan 25mg tablet PO SCH (08:00)
[2021-04-11] MEDS: OMEGA-3/DHA/EPA/FISH OIL 1 EACH CAPSULE.DR PO SCH (09:06)
[2021-04-11] MEDS: lactobacillus rhamnosus 10,000 MMU CELLS/CAPSULE PO SCH (09:07)
[2021-04-11] MEDS: magnesium oxide 400mg tablet PO SCH (09:07)
[2021-04-11] MEDS: multivitamins, therapeutics tablet PO SCH (09:08)
[2021-04-11] MEDS: levoFLOXACIN-Levaquin 500mg/D5 100 ML IV SCH (09:08)
[2021-04-11 09:44] LABS: TOTAL CELLS COUNTED 100
[2021-04-11 09:45] LABS: LARGE PLATELETS FEW; PLATELET ESTIMATE INCREASED
[2021-04-11 11:00] VITALS: BP 103/77
--- NOTE | 2021-04-11 14:35 | NUR ---
called report to Stephanie at [facility]
--- NOTE | 2021-04-11 15:16 | NUR ---
Wound care POC. Arrived at bedside for assessment. Pt has surgical wound on the right medial thigh. Renae intact. Cannot palpate healing ridge along bottom half of incision. Dressing placed yesterday is saturated with serosanguineous drainage. Cleansed and changed bandage, applied barrier spray and covered with island dressing. Proximal to incision there is a stage 2 pressure injury that is device related. Pt spent time in the [facility] ICU and on rotoprone bed. During that time he acquired a pressure injury related to the dejesus cath statlock. He was unstable and unable to be turned so lines were not always able to be properly offloaded. No signs of infection noted. Epidermis exposed in wound bed. Pt reports "tenderness" to the area. Cleansed and dressed with xeroform to the open area, covered with Allevyn foam. Educated pt on plan of care and pressure prevention to the area. All pressure has been removed.
--- NOTE | 2021-04-11 15:22 | NUR ---
PRESSURE ULCER EDUCATION: DEFINITION: A pressure ulcer is an area of skin that breaks down when you stay in one position too long. The constant pressure against the skin reduces the blood flow to that area and the affected tissue dies. CAUSES: "Being bedridden or in a wheelchair "Fragile skin "Having a chronic condition, such as diabetes or vascular disease "Inability to move certain parts of your body without assistance "Older age "Incontinence of urine or stool SYMPTOMS: "A reddened area that DOES NOT turn white when pressed on - this can be the beginning of a pressure ulcer "A blister, deep sore or a crater - these can be advanced pressure ulcers FIRST AID: "Relieve the pressure on this area "Keep the area clean and dry "Call your primary doctor if you see any of the above symptoms "DO NOT massage the area "DO NOT use a donut shaped or ring shaped pillow- these actually interfere with the blood flow and cause complications PREVENTION: "Check for pressure ulcers everyday "Change position at least every two hours to relieve pressure "Use items that help relieve pressure- pillows, sheepskin, foam padding, and powders. "Keep skin clean and dry "Eat healthy well balanced meals "Exercise daily IF YOU SEE ANY OF THESE SYMPTOMS WHILE IN THE HOSPITAL - TELL YOUR NURSE IMMEDIATELY. IF YOU SEE ANY OF THESE SYMPTOMS WHILE AT HOME OR HAVE ANY QUESTIONS OR CONCERNS ABOUT PRESSURE ULCERS - CALL YOUR PRIMARY DOCTOR IMMEDIATELY. Addendum: 04/11/21 at 1523 by Craig Ellis RN Amended: Links added.
--- NOTE | 2021-04-11 15:52 | NUR ---
Patient stable for transfer to rehab facility per Dr Forrester and Dr Li. Jane DC'd, PIV DC'd with cannula intact and Tele DC'd. Patient was sent with his belongings. Report was called to Lilly at [facility] who will assume care. Patient and belongings were transported by a medical transport company arranged by case management
[2021-04-12] MEDS ORDERED: THIAMINE IV SCH ×4 (08:00)
[2021-04-12] MEDS ORDERED: NORMAL SALINE IV SCH ×4 (08:00)
== END 2021-04-11 15:03 | DRG 252 ==
LOC: ER 16:32 → ED HOLD 03-26 00:47 → PCU 3S 03-26 15:58 → ICU 2S 03-28 13:26 → PCU 3S 04-08 16:55
PROVIDERS: ADMIT Family Medicine; ATTEND Internal Medicine
PROC: B4201ZZ Computerized Tomography (CT Scan) of Abdominal Aorta using Low Osmolar Contrast (ICD-10-PCS; 2021-03-26)
PROC: B42H1ZZ Computerized Tomography (CT Scan) of Bilateral Lower Extremity Arteries using Low Osmolar Contrast (ICD-10-PCS; 2021-03-26)
PROC: B42H1ZZ Computerized Tomography (CT Scan) of Bilateral Lower Extremity Arteries using Low Osmolar Contrast (ICD-10-PCS; 2021-03-26)
PROC: 041K0JL Bypass Right Femoral Artery to Popliteal Artery with Synthetic Substitute, Open Approach (ICD-10-PCS; 2021-03-28)
PROC: 0W9H0ZZ Drainage of Retroperitoneum, Open Approach (ICD-10-PCS; 2021-03-28)
PROC: 30233N1 Transfusion of Nonautologous Red Blood Cells into Peripheral Vein, Percutaneous Approach (ICD-10-PCS; 2021-03-28)
PROC: B4201ZZ Computerized Tomography (CT Scan) of Abdominal Aorta using Low Osmolar Contrast (ICD-10-PCS; 2021-03-28)
PROC: B42H1ZZ Computerized Tomography (CT Scan) of Bilateral Lower Extremity Arteries using Low Osmolar Contrast (ICD-10-PCS; 2021-03-28)
PROC: B42H1ZZ Computerized Tomography (CT Scan) of Bilateral Lower Extremity Arteries using Low Osmolar Contrast (ICD-10-PCS; 2021-03-28)
PROC: 5A1955Z Respiratory Ventilation, Greater than 96 Consecutive Hours (ICD-10-PCS; 2021-03-28)
PROC: 04CM0ZZ Extirpation of Matter from Right Popliteal Artery, Open Approach (ICD-10-PCS; principal; 2021-03-28 12:02)
PROC: 0WPG00Z Removal of Drainage Device from Peritoneal Cavity, Open Approach (ICD-10-PCS; 2021-03-30)
PROC: 3E05317 Introduction of Other Thrombolytic into Peripheral Artery, Percutaneous Approach (ICD-10-PCS; 2021-04-01)
PROC: B3251ZZ Computerized Tomography (CT Scan) of Bilateral Common Carotid Arteries using Low Osmolar Contrast (ICD-10-PCS; 2021-04-09)
PROC: B32G1ZZ Computerized Tomography (CT Scan) of Bilateral Vertebral Arteries using Low Osmolar Contrast (ICD-10-PCS; 2021-04-09)
PROC: B32R1ZZ Computerized Tomography (CT Scan) of Intracranial Arteries using Low Osmolar Contrast (ICD-10-PCS; 2021-04-09)
PROC: B3281ZZ Computerized Tomography (CT Scan) of Bilateral Internal Carotid Arteries using Low Osmolar Contrast (ICD-10-PCS; 2021-04-09)
DX: T82.868A Thrombosis due to vascular prosthetic devices, implants and grafts, initial encounter (principal); J18.9 Pneumonia, unspecified organism; J96.01 Acute respiratory failure with hypoxia; R57.8 Other shock; A41.9 Sepsis, unspecified organism; K66.1 Hemoperitoneum; D62 Acute posthemorrhagic anemia; N17.9 Acute kidney failure, unspecified; J44.0 Chronic obstructive pulmonary disease with (acute) lower respiratory infection; Y82.8 Other medical devices associated with adverse incidents; Y92.89 Other specified places as the place of occurrence of the external cause; I70.711 Atherosclerosis of other type of bypass graft(s) of the extremities with intermittent claudication, right leg; B96.20 Unspecified Escherichia coli [E. coli] as the cause of diseases classified elsewhere; E78.5 Hyperlipidemia, unspecified; G89.29 Other chronic pain; Z20.822 Contact with and (suspected) exposure to COVID-19; M10.9 Gout, unspecified; M54.9 Dorsalgia, unspecified; R19.00 Intra-abdominal and pelvic swelling, mass and lump, unspecified site; I10 Essential (primary) hypertension; R73.03 Prediabetes; Z86.73 Personal history of transient ischemic attack (TIA), and cerebral infarction without residual deficits; Z87.891 Personal history of nicotine dependence; Z79.899 Other long term (current) drug therapy; R41.0 Disorientation, unspecified
CPT/HCPCS: 36247; 36415; 36430; 36600; 70450; 70496; 70498; 71045; 74018; 74176; 75635; 75710; 76010; 76857; 76937; 80047; 80048; 80053; 80061; 82272; 82550; 82553; 82607; 82803; 82948; 83036; 83605; 83690; 83735; 83874; 83880; 83935; 84100; 84132; 84134; 84439; 84443; 84484; 85007; 85018; 85025; 85027; 85379; 85384; 85610; 85730; 86885; 86900; 86901; 86920; 87040; 87070; 87075; 87077; 87081; 87186; 87635; 92508; 92616; 93005; 93926; 93971; 94002; 94003; 94640; 94760; 94799; 97110; 97116; 97162; 99152; 99153; 99285; A4618; A6213; A6253; A6258; A6402; A6407; A6449; A7000; C1757; C1760; C1768; C1769; C1887; C1894; C9113; G0269; G0378; J0690; J0696; J1170; J1644; J1956; J2001; J2250; J2270; J2405; J2543; J3010; J3411; J3475; J3480; J3486; J7030; J7040; J7050; J7120; P9016; P9045; Q9967